=== PATIENT | female | born 1955 | race Caucasian/White ===

== ENCOUNTER 2017-04-27 14:09 | Emergency (ER) | payer OTHER, SELFPAY ==
[2017-04-27 14:44] LABS: Hemoglobin 14.4 g/dL (12.0-16.0); Mean Corpuscular HGB CONC 32.9 g/dL (32.0-36.0); Mean Corpuscular Hemoglobin 30.2 pg (27.0-31.0); Mean Corpuscular Volume 91.9 fl (81.0-99.0); Mean Platelet Volume 6.5 fL (7.4-10.4); Platelet Count 401 thou/uL (130-400); RBC Distribution Width 13.1 % (11.5-14.5); Red Blood Cell (RBC) Count 4.76 mill/uL (4.20-5.40); White Blood Cell (WBC) Count 16.1 thou/uL (4.8-10.8)
[2017-04-27 14:58] LABS: Band 4 % (5-11); Lymphocytes 13 % (21-51); MDiff Complete? YES; Monocytes 6 % (0-10); Neutrophil 66 % (42-75); PLT Morphology Comment Appears Increased; Polychromasia SLIGHT = 2-3 cells (100X) (0-2/hpf); Reactive Lymphocytes 10 % (0-10)
[2017-04-27 15:10] LABS: CKMB 2.9 ng/mL (0-6.6); Troponin I 0.019 ng/mL (< 0.028)
[2017-04-27 15:13] LABS: ALT (SGPT) 47 U/L (8-55); AST (SGOT) 30 U/L (5-34); Alkaline Phosphatase 91 U/L (40-150); Anion Gap 12 mmol/L (10-20); BUN (Urea Nitrogen) 15 mg/dL (9.8-20.1); Bilirubin, Total 0.2 mg/dL (0.2-1.2); CK (CPK) 124 U/L (29-168); Calc. Creatinine Clearance 0 mL/min (70-130); Calcium 11.1 mg/dL (7.8-10.44); Carbon Dioxide 29 mmol/L (23-31); Chloride 100 mmol/L (98-107); Estimated GFR-MDRD 47; Globulin 3.2 g/dL (2.4-3.5); Glucose 115 mg/dL (80-115); Lipase 67 U/L (8-78); Potassium 4.7 mmol/L (3.5-5.1); Protein, Total 7.2 g/dL (6.0-8.3); Sodium 136 mmol/L (136-145)
--- NOTE | 2017-04-27 15:56 | RAD ---
PORTABLE CHEST 1 VIEW: DATE: 04/27/17. TIME: 3:37 p.m. HISTORY: Chest pain. FINDINGS: Comparison is made to the exam of 04/10/16. The heart size is normal. The lungs are expanded without focal areas of consolidation, pneumothorax, or pleural effusions. IMPRESSION: No radiographic evidence of acute cardiopulmonary process. POS: [facility]
[2017-04-27] MEDS ORDERED: Albuterol Sulfate 2.5 mg/3 ml Neb ONE (16:26)
[2017-04-27] MEDS ORDERED: methylPREDNISolone Sod Succ/PF 125 MG/2 ML VIAL ONE (17:10)
[2017-04-27] MEDS ORDERED: Water For Inject, Bacteriostat 30 ML ONE (17:11)
== END 2017-04-27 17:25 | disposition home or self-care (01) ==
LOC: ERS 14:09
DX: J44.1 Chronic obstructive pulmonary disease with (acute) exacerbation (principal); E78.5 Hyperlipidemia, unspecified; I10 Essential (primary) hypertension; M19.90 Unspecified osteoarthritis, unspecified site; J44.9 Chronic obstructive pulmonary disease, unspecified; F41.9 Anxiety disorder, unspecified; F31.9 Bipolar disorder, unspecified; F17.210 Nicotine dependence, cigarettes, uncomplicated
CPT/HCPCS: 36415; 71010; 80053; 82550; 82553; 83605; 83690; 84484; 85025; 87040; 93005; 94640; 96374; J2930; J7611; J7620

== ENCOUNTER 2017-07-02 10:37 | Emergency (ER) | payer SELFPAY ==
[2017-07-02] MEDS ORDERED: ISOVUE-370 76%-LOCM 1 ML ONE (11:11)
[2017-07-02] MEDS ORDERED: Acetaminophen 325 MG TAB ONE (11:34)
[2017-07-02] MEDS ORDERED: Adacel (T-DAP) 0.5 ML VIAL ONE (11:34)
[2017-07-02 11:41] LABS: #Basophils 0.1 thou/uL (0.0-0.2); #Eosinphils 0.2 thou/uL (0.0-0.7); #Lymphocytes 2.1 thou/uL (1.20-3.40); #Monocytes 0.9 thou/uL (0.11-0.59); %Eosinophils 2.4 % (0.0-10.0); %Lymphocytes 28.8 % (21.0-51.0); %Monocytes 11.8 % (0.0-10.0); %Neutrophils 56.1 % (42.0-75.0); Hemoglobin 13.9 g/dL (12.0-16.0); Mean Corpuscular Hemoglobin 31.3 pg (27.0-31.0); Mean Corpuscular Volume 91.9 fl (81.0-99.0); Mean Platelet Volume 6.8 fL (7.4-10.4); Platelet Count 279 thou/uL (130-400); Red Blood Cell (RBC) Count 4.45 mill/uL (4.20-5.40); White Blood Cell (WBC) Count 7.2 thou/uL (4.8-10.8)
[2017-07-02 11:54] LABS: INR-International Normal Ratio 0.9; Prothrombin Time 12.4 SEC (12.0-14.7)
[2017-07-02 11:58] LABS: Bilirubin Negative (Negative); Blood, Urine Small (Negative); Clarity CLEAR (Clear); Glucose, Urine (Dipstick) Negative (Negative); Leukocyte Trace (Negative); Nitrite Negative (Negative); Protein, Urine (Dipstick) Negative (Neg-Trace); Specific Gravity, Urine 1.007 (1.002-1.036); Urobilinogen 0.2 mg/dL (0.2-1.0); pH, Urine 6.5 (5.0-9.0)
[2017-07-02 12:00] LABS: ALT (SGPT) 21 U/L (8-55); AST (SGOT) 29 U/L (5-34); Albumin 3.9 g/dL (3.4-4.8); Alkaline Phosphatase 68 U/L (40-150); Anion Gap 10 mmol/L (10-20); BUN (Urea Nitrogen) 12 mg/dL (9.8-20.1); Bilirubin, Total 0.3 mg/dL (0.2-1.2); Calc. Creatinine Clearance 0 mL/min (70-130); Calcium 9.4 mg/dL (7.8-10.44); Carbon Dioxide 29 mmol/L (23-31); Estimated GFR-MDRD 48; Globulin 2.8 g/dL (2.4-3.5); Glucose 85 mg/dL (80-115); Lipase 36 U/L (8-78); Potassium 4.5 mmol/L (3.5-5.1); Protein, Total 6.7 g/dL (6.0-8.3)
[2017-07-02 12:03] LABS: Bacteria/HPF None Seen HPF (None Seen); Hyaline Casts/LPF 0-3 HYALINE CAST LPF (0-3 Hyaline); Pathc Cast-AUWi Flag 0.13 (0-2.49); Squamous Epithelial 0-3 HPF (0-3); WBC/HPF 0-3 HPF (0-3)
[2017-07-02 12:09] LABS: Chloride 101 mmol/L (98-107); Sodium 135 mmol/L (136-145)
--- NOTE | 2017-07-02 12:38 | CT ---
CT ABDOMEN AND PELVIS WITH IV CONTRAST: HISTORY: Abdominal pain, dark stools. FINDINGS: The lung bases are clear. No free, free fluid, or lymphadenopathy is seen in the abdomen or pelvis. No calcified gallstones are noted. The liver, spleen, pancreas, adrenal glands, and kidneys are nor mal. The small bowel loops are not abnormally dilated. A normal-appearing appendix is present. A u terus is present. There are vascular calcifications without evidence of aneurysmal dilatation of the abdominal aorta. There are degenerative changes in the spine. IMPRESSION: No evidence of acute process. POS: [facility]
== END 2017-07-02 12:58 | disposition home or self-care (01) ==
LOC: ERS 10:37
DX: K92.2 Gastrointestinal hemorrhage, unspecified (principal); R31.9 Hematuria, unspecified; E78.5 Hyperlipidemia, unspecified; I10 Essential (primary) hypertension; M19.90 Unspecified osteoarthritis, unspecified site; J44.9 Chronic obstructive pulmonary disease, unspecified; G89.29 Other chronic pain; F31.9 Bipolar disorder, unspecified; F41.9 Anxiety disorder, unspecified; F17.210 Nicotine dependence, cigarettes, uncomplicated
CPT/HCPCS: 36415; 74177; 80053; 81003; 81015; 82274; 83605; 83690; 85025; 85610; 86850; 86900; 86901; 90471; 90715; 96360

== ENCOUNTER 2017-07-16 17:56 | Emergency (ER) | payer SELFPAY ==
[2017-07-16] MEDS ORDERED: HYDROcodone/Acetaminophen 10/325 mg Tablet ONE (19:59)
[2017-07-16] MEDS ORDERED: predniSONE 20 MG TAB ONE (20:00)
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
== END 2017-07-16 20:47 | disposition home or self-care (01) ==
LOC: ERS 17:56
DX: S29.012A Strain of muscle and tendon of back wall of thorax, initial encounter (principal); E78.5 Hyperlipidemia, unspecified; I10 Essential (primary) hypertension; J44.9 Chronic obstructive pulmonary disease, unspecified; F41.9 Anxiety disorder, unspecified; F31.9 Bipolar disorder, unspecified; F17.210 Nicotine dependence, cigarettes, uncomplicated; V43.62XA Car passenger injured in collision with other type car in traffic accident, initial encounter
CPT/HCPCS: 71045; 94640; 99406; J7506; J7620

== ENCOUNTER 2017-09-22 19:47 | Inpatient (IN) | payer OTHER, SELFPAY ==
[2017-09-22 20:22] LABS: #Lymphocytes 3.3 thou/uL (1.20-3.40); #Monocytes 1.7 thou/uL (0.11-0.59); #Neutrophils 11.5 thou/uL (1.40-6.50); %Basophils 0.2 % (0.0-1.0); %Eosinophils 0.3 % (0.0-10.0); %Neutrophils 69.5 % (42.0-75.0); Hemoglobin 13.7 g/dL (12.0-16.0); Mean Corpuscular HGB CONC 34.4 g/dL (32.0-36.0); Mean Corpuscular Hemoglobin 31.3 pg (27.0-31.0); Mean Corpuscular Volume 90.9 fl (81.0-99.0); Mean Platelet Volume 6.7 fL (7.4-10.4); Platelet Count 207 thou/uL (130-400); RBC Distribution Width 12.6 % (11.5-14.5); Red Blood Cell (RBC) Count 4.39 mill/uL (4.20-5.40); White Blood Cell (WBC) Count 16.5 thou/uL (4.8-10.8)
[2017-09-22 20:42] LABS: ALT (SGPT) 22 U/L (8-55); AST (SGOT) 24 U/L (5-34); Albumin 3.8 g/dL (3.4-4.8); Alkaline Phosphatase 91 U/L (40-150); Anion Gap 12 mmol/L (10-20); BUN (Urea Nitrogen) 8 mg/dL (9.8-20.1); Bilirubin, Total 0.4 mg/dL (0.2-1.2); CK (CPK) 227 U/L (29-168); Calc. Creatinine Clearance 0 mL/min (70-130); Calcium 8.7 mg/dL (7.8-10.44); Carbon Dioxide 31 mmol/L (23-31); Chloride 93 mmol/L (98-107); Estimated GFR-MDRD 57; Globulin 2.7 g/dL (2.4-3.5); Glucose 151 mg/dL (80-115); Potassium 4.3 mmol/L (3.5-5.1); Protein, Total 6.5 g/dL (6.0-8.3); Sodium 132 mmol/L (136-145)
[2017-09-22 20:45] LABS: CKMB 1.2 ng/mL (0-6.6); Troponin I Less than 0.010 ng/mL (< 0.028)
--- NOTE | 2017-09-22 21:09 | RAD ---
ONE VIEW CHEST: HISTORY: Weakness. Cough. COMPARISON: 07/16/2017 FINDINGS: Normal cardiac silhouette. Pulmonary vessels and hilum are normal. Costophrenic angles are clear. Bibasilar pleural effusion with superimposed parenchymal changes, right greater than left. Adequate aeration of the upper lungs. No pneumothorax. IMPRESSION: Bibasilar pleural and parenchymal changes. Continued surveillance to ensure resolution. POS: [facility]
[2017-09-22] MEDS ORDERED: Azithromycin 500 MG VIAL ONE (22:23)
[2017-09-22] MEDS ORDERED: cefTRIAXone\\ROCEPHIN 2 GM VIAL ONE (22:23)
[2017-09-22] MEDS ORDERED: Acetaminophen 325 MG TAB PO PRN (23:47)
[2017-09-22] MEDS ORDERED: Ondansetron ODT 4 MG TAB SL PRN (23:47)
[2017-09-22] MEDS ORDERED: Ondansetron HCl/PF 4 MG/2 ML Vial IVP PRN (23:47)
[2017-09-22 23:52] LABS: pH, Arterial 7.24 (7.35-7.45)
[2017-09-22 23:53] LABS: Actual Bicarbonate (HCO3a) 27.4 mEq/L (22-26); Base Excess (BEa) 1.2 mEq/L (0 (+/-) 2.5); Hematocrit-ABG 41.6 % (36.0-47.0); Hemoglobin (Hb) 12.3 g/dL (12.0-16.0); O2 Tension (PaO2) 65.6 mmHg (80.0-100.0)
[2017-09-22 23:54] LABS: Troponin I Less than 0.010 ng/mL (< 0.028)
[2017-09-22 23:54] LABS: Calcium, Ionized 1.1 mmol/L (1.12-1.30); Puncture Site RRA
[2017-09-23 02:27] VITALS: BMI 33.3
[2017-09-23 03:01] LABS: Troponin I Less than 0.010 ng/mL (< 0.028)
[2017-09-23] MEDS ORDERED: Mag-Al 1200 mg/1200 mg/30 ML UDCUP PO PRN (03:32)
[2017-09-23] MEDS ORDERED: Dextrose 5% in Water 1,000 ML IV PRN (03:32)
[2017-09-23] MEDS ORDERED: Ondansetron HCl/PF 4 MG/2 ML Vial IVP PRN (03:32)
[2017-09-23] MEDS ORDERED: HumaLOG 300 UNITS/3 ML VIAL SC PRN ×2 (03:32)
[2017-09-23] MEDS ORDERED: Calcium Carbonate 500 MG ChewTAB PO PRN (03:32)
[2017-09-23] MEDS ORDERED: Guaifenesin DM 100-10/5 ML UDCUP PO PRN (03:32)
[2017-09-23] MEDS ORDERED: Dextrose 50% Abboject 50 ML SYRINGE SLOW IVP PRN (03:32)
[2017-09-23] MEDS ORDERED: Benzonatate 100 MG CAP PO SCH (03:45)
[2017-09-23] MEDS: Sodium Chloride 0.9% 1,000 ML IV SCH ×2 (04:10→15:52)
--- NOTE | 2017-09-23 05:57 | HP ---
REASON FOR ADMISSION: Acute respiratory failure with hypercapnia and hypoxia, acute on chronic obstructive pulmonary disease exacerbation. HISTORY OF PRESENTING ILLNESS: The patient initially came to ER with complaints of cough with expectoration of yellow sputum. The patient says that she also fell as she was lethargic at home. She couldn't get back on and finally was brought to the emergency room. Had a fever of 99.4 degrees in the ER. She was initially on BiPAP and later was placed on nonrebreather in the ER. She has returned back to BiPAP as her saturations dropped again and the patient became more lethargic with ABG revealing pH of 7.24, pCO2 of 65. No complaints of chest pain or palpitation. The patient falls asleep, but wakes up easily and is oriented. PAST MEDICAL AND SURGICAL HISTORY: History of hypertension, dyslipidemia, COPD , bipolar disorder, chronic back pain, tonsillectomy. PERSONAL HISTORY: Smokes half pack a day. Does not abuse alcohol or drugs. Lives with her . FAMILY HISTORY: Mother in her 60s from heart disease. Father in his 60s and was alcoholic. CURRENT MEDICATIONS: Celexa 60 mg daily, clonazepam 1 mg 3 times daily, lisinopril 10 mg daily, temazepam 30 mg p.o. at bedtime, albuterol inhaler q.6 hourly p.r.n., Geodon 40 mg twice daily. ALLERGIES: LATEX. REVIEW OF SYSTEMS: The following complete review of systems was negative, unless otherwise mentioned in the HPI or below: Constitutional: Weight loss or gain, ability to conduct usual activities. Skin: Rash, itching. Eyes: Double vision, pain. ENT/Mouth: Nose bleeding, neck stiffness, pain, tenderness. Cardiovascular: Palpitations, dyspnea on exertion, orthopnea. Respiratory: Shortness of breath, wheezing, cough, hemoptysis, fever or night sweats. Gastrointestinal: Poor appetite, abdominal pain, heartburn, nausea, vomiting, constipation, or diarrhea. Genitourinary: Urgency, frequency, dysuria, nocturia. Musculoskeletal: Pain, swelling. Neurologic/Psychiatric: Anxiety, depression. Allergy/Immunologic: Skin rash, bleeding tendency. PHYSICAL EXAMINATION: GENERAL: The patient is a 62-year-old female, who is currently on BiPAP. VITAL SIGNS: Blood pressure 110/66, pulse 94 per minute, respiratory rate 20 per minute, temperature 99.4 degrees Fahrenheit, saturating 95% on BiPAP. NECK: Supple, no elevated JVD. HEENT: Eyes: Extraocular muscles intact. Pupils reacting to light. Oral cavity mucous membranes are dry. No exudates or congestion. CARDIOVASCULAR SYSTEM: S1, S2 heard. Regular rhythm. RESPIRATORY SYSTEM: Air entry 1+ bilateral. Scattered wheezes plus bilateral. ABDOMEN: Soft, bowel sounds heard. No tenderness, rigidity or guarding. EXTREMITIES: No peripheral edema or calf tenderness. VASCULAR SYSTEM: Peripheral pulses 1+ bilateral, no ischemic ulcerations or gangrene. CENTRAL NERVOUS SYSTEM: No gross focal deficits seen. The patient is lethargic , but oriented well. PSYCHIATRIC SYSTEM: The patient is lethargic, but no obvious hallucinations or delusions. LABORATORY AND X-RAY FINDINGS: Chest x-ray done shows bibasilar pleural and parenchymal changes. Sodium 132, chloride 93, serum bicarbonate 31, BUN 8, creatinine 0.9, glucose 151. Liver enzymes are within normal limits. CK level is 227, troponin I x2 is negative. Albumin is 3.8. Blood gas done shows a pH of 7.24, pCO2 of 65, pO2 of 65, saturating 92%. White count of 16, H&H 13 and 39, platelet count 207 with 69% neutrophils, MCV is 90. CLINICAL IMPRESSION AND PLAN: The patient will be admitted to IMCU for acute respiratory failure with hypercapnia and hypoxia, acute on chronic obstructive pulmonary disease exacerbation, possible pneumonia. The patient will be placed on Zithromax and ceftriaxone. We will continue her on BiPAP. Pulmonary consultation will be requested today. We will also place her on Solu-Medrol 40 mg IV q.6 hourly and gently hydrate her with normal saline at 80 mL per hour. We will continue her lisinopril and Geodon. She will be on clear liquid diet until she is on BiPAP. We will continue to closely monitor her in IMCU. Code status was discussed with patient. She is FULL CODE. Please note I have seen and examined patient on 09/22/2017. EVER
[2017-09-23] MEDS: Ziprasidone 20 MG CAP PO SCH ×2 (08:37→15:52)
[2017-09-23] MEDS: Enoxaparin Sodium 40 MG/0.4 ML SYRINGE SC SCH (08:38)
[2017-09-23] MEDS: Docusate 100 MG CAP PO SCH ×2 (08:38→21:26)
[2017-09-23] MEDS: Lisinopril 10 MG TAB PO SCH (08:38)
[2017-09-23] MEDS: Famotidine 20 MG TAB PO SCH ×2 (08:38→21:26)
[2017-09-23] MEDS ORDERED: Citalopram 20 MG TAB PO SCH ×3 (09:00→11:45)
[2017-09-23] MEDS ORDERED: Magnesium 2 GM/NS 0.9% 100 ML 2 GM in Premix Bag 1 BAG IVPB SCH (11:30)
--- NOTE | 2017-09-23 11:42 | PDOC.PN ---
- Subjective Encounter Start Date: 09/23/17 Encounter Start Time: 11:44 Patient seen and examined following admission for cute resp failure w hypercapnia and hypoxia. Improved w BiPAP. No other complaints. No acute events overnight. - Objective Resuscitation Status: Resuscitation Status FULL:Full Resuscitation Vital Signs & Weight: Vital Signs (12 hours) Temp Pulse Resp BP Pulse Ox 09/23/17 08:20 97.6 F 86 17 131/82 93 L 09/23/17 08:00 97.6 F 86 17 97 09/23/17 06:50 79 09/23/17 06:48 81 17 99 09/23/17 03:59 97.0 F L 74 16 92/61 100 09/23/17 02:39 73 09/23/17 01:00 97.8 F 75 18 100/60 98 Weight Weight 193 lb 14.4 oz I&O: 09/22/17 09/23/17 09/24/17 06:59 06:59 06:59 Intake Total 233 Balance 233 Result Diagrams: 09/22/17 20:10 09/22/17 20:10 Phys Exam - Physical Examination Constitutional: NAD HEENT: PERRLA, moist MMs Neck: no JVD, supple, full ROM Respiratory: no rales, no rhonchi reduced breath sounds b/l Cardiovascular: RRR, no significant murmur, no rub Gastrointestinal: soft, non-tender, no distention, positive bowel sounds Musculoskeletal: no edema, pulses present Neurological: non-focal, moves all 4 limbs Psychiatric: normal affect, A&O x 3 Skin: no rash, normal turgor Dx/Plan (1) Acute hypercapnic respiratory failure Code(s): J96.02 - ACUTE RESPIRATORY FAILURE WITH HYPERCAPNIA Status: Acute Comment: Improved w biPAP. COPD exacerbation vs PNA. (2) COPD exacerbation Code(s): J44.1 - CHRONIC OBSTRUCTIVE PULMONARY DISEASE W (ACUTE) EXACERBATION Status: Acute (3) Bipolar disorder Code(s): F31.9 - BIPOLAR DISORDER, UNSPECIFIED Status: Chronic Qualifiers: Active/Remission status: in remission of unspecified degree Qualified Code( s): F31.70 - Bipolar disorder, currently in remission, most recent episode unspecified (4) Chronic pain syndrome Code(s): G89.4 - CHRONIC PAIN SYNDROME Status: Chronic (5) Dyslipidemia Code(s): E78.5 - HYPERLIPIDEMIA, UNSPECIFIED Status: Chronic (6) HTN (hypertension) Code(s): I10 - ESSENTIAL (PRIMARY) HYPERTENSION Status: Chronic Qualifiers: Hypertension type: essential hypertension Qualified Code(s): I10 - Essential (primary) hypertension (7) Acute retention of urine Code(s): R33.8 - OTHER RETENTION OF URINE Status: Acute Comment: Uncelar etiology. Had > 1000cc on bladder scan. Castellanos placed. ? medication induced. - Plan cont current plan of care, continue antibiotics, respiratory therapy, DVT proph w/lovenox Continue NPPV Continue antibiotics, steroids, nebulizer therapy f/u cultures. Review of Systems - Review of Systems Respiratory: Cough, Shortness of Breath, Wheezing - Medications/Allergies Allergies/Adverse Reactions: Allergies Allergy/AdvReac Type Severity Reaction Status Date / Time latex Allergy Intermediate Rash Verified 09/23/17 02:25 No Known Drug Allergies Allergy Verified 09/23/17 02:25 Medications: Current Medications Acetaminophen (Tylenol) 650 mg PO Q4H PRN PRN Reason: Headache/Fever or Pain Al Hydroxide/Mg Hydroxide (Maalox) 30 ml PO Q6H PRN PRN Reason: Heartburn or Indigestion Albuterol/Ipratropium (Duoneb) 3 ml NEB [id number] [facility] Last Admin: 09/23/17 06:48 Dose: 3 ml Benzonatate (Tessalon) 100 mg PO TIDPRN [facility] Calcium Carbonate (Tums) 1,000 mg PO Q4H PRN PRN Reason: Heartburn or Indigestion Citalopram Hydrobromide (Celexa) 40 mg PO NOW [facility] Stop: 09/23/17 14:00 Citalopram Hydrobromide (Celexa) 40 mg PO DAILY [facility] Clonazepam (Klonopin) 1 mg PO TID [facility] Clonazepam (Klonopin) 1 mg PO ONE [facility] Stop: 09/23/17 13:00 Dextrose/Water (Dextrose 50%) 25 gm SLOW IVP PRN PRN PRN Reason: Hypoglycemia Docusate Sodium (Colace) 100 mg PO BID [facility] Last Admin: 09/23/17 08:38 Dose: 100 mg Enoxaparin Sodium (Lovenox) 40 mg SC 0900 [facility] Last Admin: 05/29/18 08:38 Dose: 40 mg Famotidine (Pepcid) 20 mg PO BID [facility] Last Admin: 09/23/17 08:38 Dose: 20 mg Glucagon (Glucagon) 1 mg IM PRN PRN PRN Reason: Hypoglycemia Guaifenesin/Dextromethorphan (Robitussin Dm) 15 ml PO Q4H PRN PRN Reason: Cough Azithromycin 500 mg/ Sodium (Chloride) 250 mls @ 250 mls/hr IVPB 2200 [facility] Ceftriaxone Sodium 1 gm/ (Sodium Chloride) 100 mls @ 200 mls/hr IVPB 2100 [facility] Dextrose/Water (D5w) 1,000 mls @ 0 mls/hr IV .Q0M PRN; As Directed PRN Reason: Hypoglycemia Sodium Chloride (Normal Saline 0.9%) 1,000 mls @ 80 mls/hr IV .[id number] [facility] Last Admin: 09/23/17 04:10 Dose: 1,000 mls Magnesium Sulfate 2 gm/ Device 100 mls @ 100 mls/hr IVPB ONE [facility] Stop: 09/23/17 14:00 Insulin Human Lispro (Humalog) 0 units SC .MILD SLIDING SCALE PRN PRN Reason: Mild Correctional Scale Insulin Human Lispro (Humalog) 0 units SC .BEDTIME SLIDING SC PRN PRN Reason: Bedtime Correctional Scale Lisinopril (Zestril) 10 mg PO DAILY [facility] Last Admin: 09/23/17 08:38 Dose: 10 mg Methylprednisolone Sodium Succinate (Solu-Medrol) 40 mg IVP Q6HR [facility] Last Admin: 09/23/17 05:55 Dose: 40 mg Mometasone Furoate/Formoterol Fumar (Dulera 200 Mcg/5 Mcg Inhaler) 2 puff INH BID-RT [facility] Ondansetron HCl (Zofran) 4 mg IVP Q6H PRN PRN Reason: Nausea/Vomiting Sodium Chloride (Flush - Normal Saline) 10 ml IVF Q12HR [facility] Sodium Chloride (Flush - Normal Saline) 10 ml IVF PRN PRN PRN Reason: Saline Flush Ziprasidone (Geodon) 40 mg PO BID-WM [facility] Last Admin: 09/23/17 08:37 Dose: 40 mg
[2017-09-23] MEDS ORDERED: clonazePAM 0.5 MG TAB PO SCH (11:45)
--- NOTE | 2017-09-23 11:53 | CON ---
DATE OF CONSULTATION: 09/23/2017 HISTORY OF PRESENT ILLNESS: This is a 62-year-old female from [place], [place], who presented with in creasing shortness of breath, cough, some yellow sputum. She has been smoking half pack a day up to a pack a day for most of her life. She has quit smoking 2 days ago. Per family she has been very an xious and nervous, is apparently dying of cancer. This morning she is still having difficulty breathing without any chest pain, chills or sweats. On most days, she says she can barely walk half a block without getting markedly short of breath. PAST MEDICAL HISTORY: Hyperlipidemia, high cholesterol, hypertension, arthritis, chronic pain, scoli osis, COPD, anxiety, depression. Bipolar disorder. PAST SURGICAL HISTORY: Tonsillectomy. ALCOHOL/TOBACCO: Denies any alcohol. As noted tobacco as noted. ALLERGIES: None. SOCIAL HISTORY: She was a manager of school at one time. REVIEW OF SYSTEMS: Ten point negative. PHYSICAL EXAMINATION: VITAL SIGNS: On BiPAP her sats were 90-93 on nasal O2 2 liters at 92, pulse 97, blood pressure 131/8 2. CHEST: Chest revealed decreased breath sounds, bilateral wheezing. CARDIAC: Normal S1, S2. No gallops. ABDOMEN: Soft, no masses. LABORATORY AND X-RAY FINDINGS: PO2 65, PCO2 65, pH 7.24 on 2 liters nasal O2. Electrolytes are norm al. Sodium 132. Her renal functions are normal. X-ray shows questionable bibasilar infiltrate. IMPRESSION: 1. Chronic obstructive pulmonary disease exacerbation. 2. Pneumonia. 3. Major anxiety. 4. Bipolar disorder. 5. Respiratory failure, probably hypoventilation, sleep apnea. PLAN: She is on Zithromax and ceftriaxone along with IV steroids which I will continue. I have adde d Dulera and some magnesium. I will follow. Consultation note 70 minutes of which 50% spent in direct patient care.
[2017-09-23] MEDS: clonazePAM 0.5 MG TAB PO SCH ×2 (15:51→21:31)
[2017-09-23] MEDS ORDERED: Nicotine 14 MG PATCH TOP SCH (16:00)
[2017-09-23] MEDS: Mometasone/Formoterol 120 PUFF INHALER INH SCH (19:19)
[2017-09-23] MEDS ORDERED: cefTRIAXone\\ROCEPHIN 1 GM in Sodium Chloride 0.9% 100 ML IVPB SCH (21:00)
[2017-09-23] MEDS: Acetaminophen 325 MG TAB PO PRN (21:25)
[2017-09-23] MEDS ORDERED: Azithromycin 500 MG in Sodium Chloride 0.9% 250 ML 250 ML IVPB SCH (22:00)
[2017-09-24 04:39] LABS: Anion Gap 10 mmol/L (10-20); BUN (Urea Nitrogen) 8 mg/dL (9.8-20.1); Calc. Creatinine Clearance 108 mL/min (70-130); Calcium 8.7 mg/dL (7.8-10.44); Carbon Dioxide 27 mmol/L (23-31); Chloride 102 mmol/L (98-107); Estimated GFR-MDRD 78; Glucose 145 mg/dL (80-115); Potassium 4.7 mmol/L (3.5-5.1); Sodium 134 mmol/L (136-145)
[2017-09-24 05:14] LABS: Band 2 % (5-11); Hemoglobin 11.4 g/dL (12.0-16.0); Lymphocytes 4 % (21-51); MDiff Complete? YES; Mean Corpuscular Volume 91.4 fl (81.0-99.0); Mean Platelet Volume 6.8 fL (7.4-10.4); Monocytes 5 % (0-10); Neutrophil 89 % (42-75); Platelet Count 176 thou/uL (130-400); RBC Distribution Width 12.8 % (11.5-14.5); Red Blood Cell (RBC) Count 3.68 mill/uL (4.20-5.40); White Blood Cell (WBC) Count 16.4 thou/uL (4.8-10.8)
[2017-09-24] MEDS: Ziprasidone 20 MG CAP PO SCH ×2 (07:15→18:18)
[2017-09-24] MEDS ORDERED: Diazepam 5 MG TAB PO SCH (07:30)
[2017-09-24] MEDS: Mometasone/Formoterol 120 PUFF INHALER INH SCH ×2 (07:36→19:17)
--- NOTE | 2017-09-24 08:43 | PRG ---
DATE OF SERVICE: 09/24/2017 This morning she is awake, alert, responsive. She wants to go home. PHYSICAL EXAMINATION: VITAL SIGNS: Sats 90% room air, respiratory 21, temperature 97, blood pressure 130/76. CHEST: Chest reveals decreased breath sounds with minimal wheezing. CARDIAC: Normal S1, S2. ABDOMEN: Soft, no masses. LABORATORY DATA: White count 16,000, H&H 11 and 33, platelet count normal. IMPRESSION: 1. Chronic obstructive pulmonary disease exacerbation. 2. Bronchitis. 3. Major anxiety. 4. Bipolar. PLAN: Switch her to oral medication. She can be transferred out of the [facility]. Hopefully, she will d ischarge home in the next 24-48 hours.
[2017-09-24] MEDS: clonazePAM 0.5 MG TAB PO SCH ×3 (09:43→21:25)
[2017-09-24] MEDS: Enoxaparin Sodium 40 MG/0.4 ML SYRINGE SC SCH (09:43)
[2017-09-24] MEDS: Docusate 100 MG CAP PO SCH ×2 (09:44→21:26)
[2017-09-24] MEDS: Aspirin 325 mg Enteric Coated Tablet PO SCH (09:44)
[2017-09-24] MEDS: Nicotine 14 MG PATCH TOP SCH (09:44)
[2017-09-24] MEDS: Famotidine 20 MG TAB PO SCH ×2 (09:44→21:27)
[2017-09-24] MEDS: Citalopram 20 MG TAB PO SCH (09:44)
[2017-09-24] MEDS: Lisinopril 10 MG TAB PO SCH (09:44)
[2017-09-24] MEDS: Doxycycline 100 MG CAP PO SCH ×2 (09:44→21:26)
[2017-09-24] MEDS: Gabapentin 100 MG CAP PO SCH ×3 (09:44→21:27)
[2017-09-24] MEDS ORDERED: Non-Formulary Item 1 EACH (Hydroxyzine Hcl [Hydroxyzine Hcl] 50 MG) PO PRN (10:41)
--- NOTE | 2017-09-24 10:43 | PDOC.PN ---
- Subjective Encounter Start Date: 09/24/17 Encounter Start Time: 10:45 Patient seen following admission for Acute hypercapnic respiratory failure requiring BiPAP. She has been weaned off and is saturating well on room air. No acute events overnight. - Objective Resuscitation Status: Resuscitation Status FULL:Full Resuscitation MAR Reviewed: Yes Vital Signs & Weight: Vital Signs (12 hours) Temp Pulse Resp BP Pulse Ox 09/24/17 08:00 97.7 F 87 21 H 98 09/24/17 03:32 97.7 F 87 21 H 137/76 97 09/23/17 23:51 97.6 F 83 20 112/60 100 09/23/17 23:31 82 16 97 Weight Weight 191 lb 3.2 oz I&O: 09/23/17 09/24/17 09/25/17 06:59 06:59 06:59 Intake Total 233 4410 Output Total 3900 Balance 233 510 Result Diagrams: 09/24/17 03:56 09/24/17 03:56 Additional Labs: Accuchecks 09/24/17 09/23/17 09/23/17 05:53 20:18 16:19 POC Glucose 140 H 123 H 165 H 09/23/17 09/23/17 11:43 05:59 POC Glucose 182 H 158 H Phys Exam - Physical Examination Constitutional: NAD HEENT: PERRLA, moist MMs, sclera anicteric, oral pharynx no lesions Neck: supple, full ROM Respiratory: no rales, no rhonchi mild wheezes w reduced breath sounds b/l Cardiovascular: RRR, no significant murmur, no rub Gastrointestinal: soft, non-tender, no distention, positive bowel sounds Musculoskeletal: no edema, pulses present Neurological: non-focal, moves all 4 limbs Psychiatric: normal affect, A&O x 3 Skin: no rash, normal turgor Dx/Plan (1) COPD exacerbation Code(s): J44.1 - CHRONIC OBSTRUCTIVE PULMONARY DISEASE W (ACUTE) EXACERBATION Status: Acute Comment: Improved. (2) Bipolar disorder Code(s): F31.9 - BIPOLAR DISORDER, UNSPECIFIED Status: Chronic Qualifiers: Active/Remission status: in remission of unspecified degree Qualified Code( s): F31.70 - Bipolar disorder, currently in remission, most recent episode unspecified (3) Chronic pain syndrome Code(s): G89.4 - CHRONIC PAIN SYNDROME Status: Chronic (4) Dyslipidemia Code(s): E78.5 - HYPERLIPIDEMIA, UNSPECIFIED Status: Chronic (5) HTN (hypertension) Code(s): I10 - ESSENTIAL (PRIMARY) HYPERTENSION Status: Chronic Qualifiers: Hypertension type: essential hypertension Qualified Code(s): I10 - Essential (primary) hypertension (6) Acute hypercapnic respiratory failure Code(s): J96.02 - ACUTE RESPIRATORY FAILURE WITH HYPERCAPNIA Status: Resolved (7) Acute retention of urine Code(s): R33.8 - OTHER RETENTION OF URINE Status: Resolved - Plan cont current plan of care, continue antibiotics, out of bed/ambulate, DVT proph w/lovenox Continue bronchodilator treatments and steroids. Patient started on PO Doxycycline. Transfer to medical floor. Likely discharge in 24 hours. Review of Systems - Medications/Allergies Allergies/Adverse Reactions: Allergies Allergy/AdvReac Type Severity Reaction Status Date / Time latex Allergy Intermediate Rash Verified 09/23/17 02:25 No Known Drug Allergies Allergy Verified 09/23/17 02:25 Medications: Current Medications Acetaminophen (Tylenol) 650 mg PO Q4H PRN PRN Reason: Headache/Fever or Pain Last Admin: 09/23/17 21:25 Dose: 650 mg Al Hydroxide/Mg Hydroxide (Maalox) 30 ml PO Q6H PRN PRN Reason: Heartburn or Indigestion Albuterol/Ipratropium (Duoneb) 3 ml NEB [id number] COUNT INCLUDES [facility] Last Admin: 09/24/17 07:48 Dose: Not Given Aspirin (Ecotrin) 325 mg PO DAILY COUNT INCLUDES [facility] Last Admin: 09/24/17 09:44 Dose: 325 mg Benzonatate (Tessalon) 100 mg PO TIDPRN COUNT INCLUDES THE [facility] Calcium Carbonate (Tums) 1,000 mg PO Q4H PRN PRN Reason: Heartburn or Indigestion Citalopram Hydrobromide (Celexa) 40 mg PO DAILY [facility]CLUD[facility] Last Admin: 09/24/17 09:44 Dose: 40 mg Clonazepam (Klonopin) 1 mg PO TID [facility]CLUD[facility] Last Admin: 09/24/17 09:43 Dose: 1 mg Dextrose/Water (Dextrose 50%) 25 gm SLOW IVP PRN PRN PRN Reason: Hypoglycemia Docusate Sodium (Colace) 100 mg PO BID [facility] Last Admin: 09/24/17 09:44 Dose: 100 mg Doxycycline Hyclate (Vibramycin) 100 mg PO BID [facility] Last Admin: 09/24/17 09:44 Dose: 100 mg Enoxaparin Sodium (Lovenox) 40 mg SC 0900 [facility]CLUD[facility] Last Admin: 09/24/17 09:43 Dose: 40 mg Famotidine (Pepcid) 20 mg PO BID [facility] Last Admin: 09/24/17 09:44 Dose: 20 mg Gabapentin (Neurontin) 100 mg PO TID [facility] Last Admin: 09/24/17 09:44 Dose: 100 mg Glucagon (Glucagon) 1 mg IM PRN PRN PRN Reason: Hypoglycemia Guaifenesin/Dextromethorphan (Robitussin Dm) 15 ml PO Q4H PRN PRN Reason: Cough Dextrose/Water (D5w) 1,000 mls @ 0 mls/hr IV .Q0M PRN; As Directed PRN Reason: Hypoglycemia Sodium Chloride (Normal Saline 0.9%) 1,000 mls @ 80 mls/hr IV .[id number] COUNT INCLUDES THE [facility] Last Admin: 09/23/17 15:52 Dose: 1,000 mls Insulin Human Lispro (Humalog) 0 units SC .MILD SLIDING SCALE PRN PRN Reason: Mild Correctional Scale Insulin Human Lispro (Humalog) 0 units SC .BEDTIME SLIDING SC PRN PRN Reason: Bedtime Correctional Scale Lisinopril (Zestril) 10 mg PO DAILY [facility]CLUD[facility] Last Admin: 09/24/17 09:44 Dose: 10 mg Mometasone Furoate/Formoterol Fumar (Dulera 200 Mcg/5 Mcg Inhaler) 2 puff INH BID-RT COUNT [facility]CLUDES [facility] Last Admin: 09/24/17 07:36 Dose: 2 puff Nicotine (Nicoderm Patch) 14 mg TOP DAILY COUNT INCLUDES [facility] Last Admin: 09/24/17 09:44 Dose: 14 mg Ondansetron HCl (Zofran) 4 mg IVP Q6H PRN PRN Reason: Nausea/Vomiting Prednisone (Prednisone) 40 mg PO QAM-WM COUNT INCLUDES THE [facility] Sodium Chloride (Flush - Normal Saline) 10 ml IVF Q12HR COUNT INCLUDES [facility] Last Admin: 09/24/17 09:45 Dose: 10 ml Sodium Chloride (Flush - Normal Saline) 10 ml IVF PRN PRN PRN Reason: Saline Flush Ziprasidone (Geodon) 40 mg PO BID-[facility] Last Admin: 09/24/17 07:15 Dose: 40 mg
[2017-09-24] MEDS ORDERED: hydrOXYzine 25 MG TAB PO PRN (10:44)
[2017-09-24] MEDS: Sodium Chloride 0.9% 1,000 ML IV SCH (13:05)
[2017-09-24] MEDS: Acetaminophen 325 MG TAB PO PRN (15:58)
[2017-09-24 16:54] VITALS: TEMP 98.4
[2017-09-24] MEDS: Diazepam 5 MG TAB PO SCH (21:26)
[2017-09-25] MEDS: Mometasone/Formoterol 120 PUFF INHALER INH SCH (07:00)
[2017-09-25] MEDS ORDERED: predniSONE 20 MG TAB PO SCH (08:00)
[2017-09-25 08:08] VITALS: BP 147/88
[2017-09-25] MEDS: Doxycycline 100 MG CAP PO SCH (09:27)
[2017-09-25] MEDS: Ziprasidone 20 MG CAP PO SCH (09:27)
[2017-09-25] MEDS: Citalopram 20 MG TAB PO SCH (09:27)
[2017-09-25] MEDS: Gabapentin 100 MG CAP PO SCH (09:27)
[2017-09-25] MEDS: Docusate 100 MG CAP PO SCH (09:28)
[2017-09-25] MEDS: clonazePAM 0.5 MG TAB PO SCH (09:28)
[2017-09-25] MEDS: Nicotine 14 MG PATCH TOP SCH (09:28)
[2017-09-25] MEDS: Aspirin 325 mg Enteric Coated Tablet PO SCH (09:28)
[2017-09-25] MEDS: Diazepam 5 MG TAB PO SCH (09:28)
[2017-09-25] MEDS: Lisinopril 10 MG TAB PO SCH (09:29)
[2017-09-25] MEDS: Enoxaparin Sodium 40 MG/0.4 ML SYRINGE SC SCH (09:41)
[2017-09-25] MEDS: Famotidine 20 MG TAB PO SCH (09:41)
--- NOTE | 2017-09-26 00:32 | DIS ---
DATE OF ADMISSION: 09/22/2017 DATE OF DISCHARGE: 09/25/2017 DISCHARGE DIAGNOSES: As the followin. Chronic obstructive pulmonary disease exacerbation. 2. Bipolar disorder. 3. Chronic pain syndrome. 4. Dyslipidemia. 5. Hypertension. HOSPITAL COURSE: The patient is a 62-year-old female who initially presented to the hospital with co mplaints of shortness of breath. She also was complaint of cough with yellow-sputum production. Kristi kitchen initially was at home, feeling very tired, and her finally brought her into the ER for f urther evaluation. Patient was initially placed on BiPAP and later on a nonrebreather and initially was transferred to the [facility] for closer monitoring. The patient denies any complaints of chest pain o r palpitation. Patient then was transitioned to the medical floor. Patient also was seen by Pulmono carole. Patient was put initially on broad spectrum antibiotics and then was changed to doxycycline an d neb treatments. Upon discharge, the patient states that she feels much better. Her shortness of b reath has resolved. She is able to ambulate without any issues. Patient states that she does have a nebulizer at home and also has tons of medications for her nebulizer. She will be discharged home w ith antibiotics and an inhaler which has been prescribed by senior inspector. DISCHARGE MEDICATIONS: As the following: The new ones are Tessalon Perles 100 mg t.i.d., doxycyclin e 100 mg b.i.d. for 5 days, Pepcid 20 mg b.i.d. until she is on her prednisone, prednisone 40 mg for 2 more days, which will be 5 days total, and mometasone and formoterol 2 puffs b.i.d., lisinopril 10 mg daily, temazepam 30 mg at bedtime, aspirin 325 daily, Celexa 80 mg daily, Geodon 40 mg daily, jone pentin 100 mg t.i.d., Valium 10 mg b.i.d., and hydrochlorothiazide 50 mg p.o. b.i.d. p.r.n. PHYSICAL EXAMINATION: VITAL SIGNS: 98.4 temperature, pulse of 81, respirations of 16, 95% on room air, blood pressure 129/ 77. GENERAL: She is awake, alert, and oriented x3, does not appear in distress. CARDIOVASCULAR: S1, S2 present. No murmurs, rubs, or gallops. LUNGS: Mild expiratory wheezing to bilateral lower bases, otherwise normal. ABDOMEN: Soft, nontender. Bowel sounds are present x2. EXTREMITIES: No edema. DISCHARGE INSTRUCTIONS: The patient will be discharged home. She will follow up with PCP and Pulmon ology next week.
== END 2017-09-25 12:53 | disposition home or self-care (01) | DRG 189 ==
LOC: ERS 19:47 → T4-B 22:43 → IMCU/EMU 09-23 01:20 → T4-A 09-24 11:09
PROVIDERS: ADMIT Internal Medicine; ATTEND Internal Medicine
DX: J96.02 Acute respiratory failure with hypercapnia (principal); J44.1 Chronic obstructive pulmonary disease with (acute) exacerbation; J96.01 Acute respiratory failure with hypoxia; F17.210 Nicotine dependence, cigarettes, uncomplicated; F41.9 Anxiety disorder, unspecified; F31.9 Bipolar disorder, unspecified; G89.29 Other chronic pain; E78.5 Hyperlipidemia, unspecified; I10 Essential (primary) hypertension; R33.8 Other retention of urine
CPT/HCPCS: 36415; 36416; 71045; 80048; 80053; 82550; 82553; 82805; 83605; 84484; 85025; 87040; 90471; 93005; 94640; 94660; 94760; 96361; 96365; A4216; J0456; J0696; J1650; J2405; J2920; J7050; J7506; J7620

== ENCOUNTER 2017-10-01 14:17 | Emergency (ER) | payer SELFPAY | END 2017-10-01 15:11 | disposition home or self-care (01) | LOC: ERS 14:17 | DX: S51.012D Laceration without foreign body of left elbow, subsequent encounter (principal); E78.5 Hyperlipidemia, unspecified; I10 Essential (primary) hypertension; J44.9 Chronic obstructive pulmonary disease, unspecified; F41.9 Anxiety disorder, unspecified; F31.9 Bipolar disorder, unspecified; F17.210 Nicotine dependence, cigarettes, uncomplicated | CPT/HCPCS: 99282 ==

== ENCOUNTER 2017-12-31 18:50 | Emergency (ER) | payer OTHER, SELFPAY ==
--- NOTE | 2017-12-31 22:21 | CT ---
NONCONTRAST CT HEAD: 12/31/17 HISTORY: Headache. COMPARISON: 04/03/16. FINDINGS: Low areas of diminished attenuation seen in the periventricular white matter which are nonspecific bu t likely reflective of mild chronic small vessel ischemic changes. There is no evidence of an acute c ortical infarction, hemorrhage, mass effect, or midline shift. Ventricular system is normal in size, shape, and position. Mucosal thickening is present in the sphenoid sinuses bilaterally. Mastoid air cells are clear. Mandy rial structures are intact. No other interval change. IMPRESSION: 1. No acute intracranial abnormalities demonstrated. 2. Sinus disease involving the sphenoid sinuses. POS: [facility]
[2017-12-31] MEDS ORDERED: Metoclopramide HCl 10 MG/2 ML VIAL ONE (22:34)
[2017-12-31] MEDS ORDERED: diphenhydrAMINE 50 MG/ML VIAL ONE (22:34)
[2017-12-31] MEDS ORDERED: Acetaminophen/Codeine 30-300mg Tablet ONE (23:32)
[2018-01-01 00:16] LABS: #Basophils 0.1 thou/uL (0.0-0.2); #Eosinphils 0.2 thou/uL (0.0-0.7); #Lymphocytes 2.5 thou/uL (1.20-3.40); #Monocytes 0.8 thou/uL (0.11-0.59); %Basophils 0.8 % (0.0-1.0); %Eosinophils 2.9 % (0.0-10.0); %Lymphocytes 33.1 % (21.0-51.0); %Monocytes 10.8 % (0.0-10.0); %Neutrophils 52.4 % (42.0-75.0); Hemoglobin 12.4 g/dL (12.0-16.0); Mean Corpuscular HGB CONC 34.3 g/dL (32.0-36.0); Mean Corpuscular Hemoglobin 30.7 pg (27.0-31.0); Mean Corpuscular Volume 89.5 fL (78.0-98.0); Mean Platelet Volume 7.6 fL (7.4-10.4); Platelet Count 238 thou/uL (130-400); RBC Distribution Width 14.4 % (11.5-14.5); Red Blood Cell (RBC) Count 4.02 mill/uL (4.20-5.40); White Blood Cell (WBC) Count 7.6 thou/uL (4.8-10.8)
[2018-01-01 00:39] LABS: ALT (SGPT) 12 U/L (8-55); AST (SGOT) 15 U/L (5-34); Albumin 3.3 g/dL (3.4-4.8); Alkaline Phosphatase 70 U/L (40-150); Anion Gap 10 mmol/L (10-20); BUN (Urea Nitrogen) 6 mg/dL (9.8-20.1); Bilirubin, Total 0.2 mg/dL (0.2-1.2); Calc. Creatinine Clearance 0 mL/min (70-130); Calcium 8.7 mg/dL (7.8-10.44); Carbon Dioxide 37 mmol/L (23-31); Chloride 95 mmol/L (98-107); Estimated GFR-MDRD 67; Globulin 2.4 g/dL (2.4-3.5); Glucose 107 mg/dL (80-115); Protein, Total 5.7 g/dL (6.0-8.3); Sodium 139 mmol/L (136-145)
[2018-01-01 00:42] LABS: Potassium 2.8 mmol/L (3.5-5.1)
[2018-01-01 01:14] LABS: Base Excess-Venous 13.1 mmol/L (0 (+/- 2.5)); Bicarbonate (HCO3v) 41.4 mmol/L (1.0-85.0); CO2 Tension (PvCO2) 68.4 mmHg (41.0-51.0); Calcium, Ionized 1.12 mmol/L (1.12-1.32); Hemoglobin - Calc 14.3 g/dL (12.0-18.0); O2 Tension (PvO2) 23.1 mmHg (35.0-45.0); Potassium 3.4 mmol/L (3.4-4.7); T. Carbon Dioxide 43.5 mmol/L (1.0-85.0); vO2 Saturation-calc 36.8 % (94-98)
--- NOTE | 2018-01-03 19:45 | EKG ---
Test Reason : HYPOKALEMIA Blood Pressure : / mmHG Vent. Rate : 061 BPM Atrial Rate : 061 BPM P-R Int : 190 ms QRS Dur : 082 ms QT Int : 478 ms P-R-T Axes : 034 057 067 degrees QTc Int : 481 ms Normal sinus rhythm Nonspecific T wave abnormality Prolonged QT U wave present Abnormal ECG Confirmed by DENZEL WREN M.D. ([id number]), deputy editor in chief IRLANDA LEUNG ([id number] on 01/03/2018 7:44:53 PM Referred By: HOLGER Confirmed By:DENZEL WREN M.D.
== END 2018-01-01 01:26 | disposition home or self-care (01) ==
LOC: ERS 18:50
DX: R51 Headache (principal); E87.6 Hypokalemia; E78.5 Hyperlipidemia, unspecified; I10 Essential (primary) hypertension; J44.9 Chronic obstructive pulmonary disease, unspecified; F41.9 Anxiety disorder, unspecified; F31.9 Bipolar disorder, unspecified; F17.210 Nicotine dependence, cigarettes, uncomplicated; Z71.6 Tobacco abuse counseling
CPT/HCPCS: 36415; 70450; 80053; 82330; 82435; 82803; 84132; 84295; 85014; 85025; 85652; 86140; 93005; 96365; 96375; 99406; J1200; J2765

== ENCOUNTER 2018-01-07 14:13 | Emergency (ER) | payer SELFPAY ==
[2018-01-07 14:40] LABS: #Basophils 0.1 thou/uL (0.0-0.2); #Eosinphils 0.1 thou/uL (0.0-0.7); #Lymphocytes 1.6 thou/uL (1.20-3.40); #Monocytes 0.6 thou/uL (0.11-0.59); #Neutrophils 7.9 thou/uL (1.40-6.50); %Basophils 0.9 % (0.0-1.0); %Eosinophils 0.9 % (0.0-10.0); %Lymphocytes 15.2 % (21.0-51.0); %Monocytes 6.2 % (0.0-10.0); %Neutrophils 76.9 % (42.0-75.0); Hemoglobin 14.2 g/dL (12.0-16.0); Mean Corpuscular HGB CONC 33.6 g/dL (32.0-36.0); Mean Corpuscular Hemoglobin 29.6 pg (27.0-31.0); Mean Corpuscular Volume 88.1 fL (78.0-98.0); Mean Platelet Volume 7.3 fL (7.4-10.4); Platelet Count 304 thou/uL (130-400); RBC Distribution Width 14.5 % (11.5-14.5); Red Blood Cell (RBC) Count 4.81 mill/uL (4.20-5.40); White Blood Cell (WBC) Count 10.3 thou/uL (4.8-10.8)
[2018-01-07 15:05] LABS: ALT (SGPT) 18 U/L (8-55); AST (SGOT) 19 U/L (5-34); Alkaline Phosphatase 83 U/L (40-150); Anion Gap 12 mmol/L (10-20); BUN (Urea Nitrogen) 5 mg/dL (9.8-20.1); Bilirubin, Total 0.2 mg/dL (0.2-1.2); Calc. Creatinine Clearance 0 mL/min (70-130); Calcium 9.4 mg/dL (7.8-10.44); Carbon Dioxide 29 mmol/L (23-31); Chloride 95 mmol/L (98-107); Estimated GFR-MDRD 62; Globulin 2.9 g/dL (2.4-3.5); Glucose 109 mg/dL (80-115); Potassium 3.6 mmol/L (3.5-5.1); Protein, Total 6.9 g/dL (6.0-8.3); Sodium 132 mmol/L (136-145)
[2018-01-07] MEDS ORDERED: Metoclopramide HCl 10 MG/2 ML VIAL ONE (15:07)
[2018-01-07] MEDS ORDERED: Ketorolac Tromethamine 30 MG/ML VIAL ONE (15:07)
[2018-01-07] MEDS ORDERED: diphenhydrAMINE 50 MG/ML VIAL ONE (15:07)
== END 2018-01-07 16:40 | disposition home or self-care (01) ==
LOC: ERS 14:13
DX: R51 Headache (principal); E78.5 Hyperlipidemia, unspecified; I10 Essential (primary) hypertension; J44.9 Chronic obstructive pulmonary disease, unspecified; F41.9 Anxiety disorder, unspecified; F31.9 Bipolar disorder, unspecified; F17.210 Nicotine dependence, cigarettes, uncomplicated; Z79.899 Other long term (current) drug therapy
CPT/HCPCS: 80053; 85025; 96365; 96375; J1200; J1885; J2765

== ENCOUNTER 2018-03-26 02:37 | Emergency (ER) | payer SELFPAY ==
[2018-03-26] MEDS ORDERED: HYDROcodone/Acetaminophen 5/325 mg Tablet ONE (03:18)
== END 2018-03-26 03:29 | disposition home or self-care (01) ==
LOC: ERS 02:37
DX: T21.13XA Burn of first degree of upper back, initial encounter (principal)
CPT/HCPCS: 99283

== ENCOUNTER 2018-04-08 19:00 | Emergency (ER) | payer SELFPAY ==
[2018-04-08] MEDS ORDERED: Diazepam 5 MG TAB ONE (19:46)
[2018-04-08] MEDS ORDERED: Ziprasidone 20 MG VIAL ONE (19:47)
[2018-04-08] MEDS ORDERED: Water For Inject, Bacteriostat 30 ML ONE (19:49)
== END 2018-04-08 20:50 | disposition home or self-care (01) ==
LOC: ERS 19:00
DX: R21 Rash and other nonspecific skin eruption (principal); E78.5 Hyperlipidemia, unspecified; I10 Essential (primary) hypertension; J44.9 Chronic obstructive pulmonary disease, unspecified; F17.210 Nicotine dependence, cigarettes, uncomplicated; F31.9 Bipolar disorder, unspecified; F41.9 Anxiety disorder, unspecified; Z79.899 Other long term (current) drug therapy
CPT/HCPCS: 96372; J3486

== ENCOUNTER 2018-06-01 13:49 | Outpatient (CLI) | payer OTHER ==
--- NOTE | 2018-06-01 15:22 | RAD ---
TWO VIEWS THORACIC SPINE: History: Disability exam. Comparison: None. FINDINGS: There is mild rightward curvature of the thoracic spine. There appear to be 11 thoracic type vertebra l bodies. No fracture. No malalignment. IMPRESSION: Unremarkable two views thoracic spine. POS: [facility]
== END 2018-06-01 13:50 | disposition home or self-care (01) ==
LOC: BICRAD 13:49
PROVIDERS: ATTEND Internal Medicine
DX: Z02.71 Encounter for disability determination (principal)
CPT/HCPCS: 72070

== ENCOUNTER 2018-07-02 17:47 | Emergency (ER) | payer SELFPAY ==
[2018-07-02 21:29] LABS: #Basophils 0.1 thou/uL (0.0-0.2); #Eosinphils 0.4 thou/uL (0.0-0.7); #Lymphocytes 3.3 thou/uL (1.20-3.40); #Monocytes 1.1 thou/uL (0.11-0.59); #Neutrophils 6.3 thou/uL (1.40-6.50); %Basophils 1.1 % (0.0-1.0); %Eosinophils 3.5 % (0.0-10.0); %Lymphocytes 29.6 % (21.0-51.0); %Monocytes 9.8 % (0.0-10.0); %Neutrophils 55.9 % (42.0-75.0); Hemoglobin 14.5 g/dL (12.0-16.0); Mean Corpuscular HGB CONC 34.3 g/dL (32.0-36.0); Mean Corpuscular Hemoglobin 32.5 pg (27.0-31.0); Mean Corpuscular Volume 94.7 fL (78.0-98.0); Mean Platelet Volume 7.6 fL (7.4-10.4); Platelet Count 296 thou/uL (130-400); RBC Distribution Width 12.7 % (11.5-14.5); Red Blood Cell (RBC) Count 4.47 mill/uL (4.20-5.40); White Blood Cell (WBC) Count 11.2 thou/uL (4.8-10.8)
[2018-07-02 21:57] LABS: Bilirubin Negative (Negative); Blood, Urine Small (Negative); Clarity CLEAR (Clear); Glucose, Urine (Dipstick) Negative (Negative); Leukocyte Negative (Negative); Nitrite Negative (Negative); Protein, Urine (Dipstick) Negative (Neg-Trace); Specific Gravity, Urine 1.005 (1.002-1.036); Urobilinogen 0.2 mg/dL (0.2-1.0)
[2018-07-02 21:58] LABS: ALT (SGPT) 25 U/L (8-55); AST (SGOT) 24 U/L (5-34); Albumin 4.1 g/dL (3.4-4.8); Alkaline Phosphatase 84 U/L (40-150); Anion Gap 11 mmol/L (10-20); BUN (Urea Nitrogen) 11 mg/dL (9.8-20.1); Bilirubin, Total 0.3 mg/dL (0.2-1.2); Calc. Creatinine Clearance 0 mL/min (70-130); Calcium 9.6 mg/dL (7.8-10.44); Carbon Dioxide 30 mmol/L (23-31); Chloride 97 mmol/L (98-107); Estimated GFR-MDRD 52; Globulin 2.9 g/dL (2.4-3.5); Glucose 98 mg/dL (80-115); Potassium 4.3 mmol/L (3.5-5.1); Sodium 134 mmol/L (136-145)
[2018-07-02 21:59] LABS: Bacteria/HPF None Seen HPF (None Seen); Hyaline Casts/LPF 0-3 HYALINE CAST LPF (0-3 Hyaline); Squamous Epithelial None Seen HPF (0-3); WBC/HPF None Seen HPF (0-3)
[2018-07-02 22:37] LABS: Amphetamine Not Detected (NotDetected); Barbiturates Screen Not Detected (NotDetected); Benzodiazepine Screen Detected (NotDetected); Cocaine Metabolite Screen Not Detected (NotDetected); Medtox Control Line Valid? VALID (VALID); Medtox Reader # READER 4; Methadone Not Detected (NotDetected); Methamphetamine Not Detected (NotDetected); Opiate Screen Not Detected (NotDetected); Oxycodone Screen Not Detected (NotDetected); Phencyclidine (PCP) Not Detected (NotDetected); THC/Cannabinoid Screen Not Detected (NotDetected); Tricyclic Screen Not Detected (NotDetected)
[2018-07-02 22:40] LABS: Acetaminophen Less than 6.0 mcg/mL (10.0-30.0); Alcohol Less than 10 mg/dL (Less than 10); Salicylate Less than 8.0 mg/dL (15.0-30.0)
--- NOTE | 2018-07-04 21:35 | EKG ---
Test Reason : Blood Pressure : / mmHG Vent. Rate : 078 BPM Atrial Rate : 078 BPM P-R Int : 166 ms QRS Dur : 078 ms QT Int : 416 ms P-R-T Axes : 031 048 069 degrees QTc Int : 474 ms Normal sinus rhythm Normal ECG Confirmed by DEV ISBELL ([id number]), international editorial producer IRLANDA LEUNG ([id number] on 07/04/2018 9:34:45 PM Referred By: Confirmed By:DEV ISBELL
== END 2018-07-02 23:57 | disposition home or self-care (01) ==
LOC: ERS 17:47
DX: F13.239 Sedative, hypnotic or anxiolytic dependence with withdrawal, unspecified (principal); L27.0 Generalized skin eruption due to drugs and medicaments taken internally; E78.5 Hyperlipidemia, unspecified; I10 Essential (primary) hypertension; J44.9 Chronic obstructive pulmonary disease, unspecified; K21.9 Gastro-esophageal reflux disease without esophagitis; F41.9 Anxiety disorder, unspecified; F31.9 Bipolar disorder, unspecified; F17.210 Nicotine dependence, cigarettes, uncomplicated; Z79.899 Other long term (current) drug therapy
CPT/HCPCS: 36415; 80053; 80306; 80307; 81003; 81015; 84484; 85025; 93005

== ENCOUNTER 2019-02-04 20:52 | Emergency (ER) | payer MEDICAID, SELFPAY ==
[2019-02-04 21:50] LABS: #Basophils 0.1 thou/uL (0.0-0.2); #Eosinphils 0.3 thou/uL (0.0-0.7); #Lymphocytes 3.2 thou/uL (1.20-3.40); #Monocytes 0.9 thou/uL (0.11-0.59); #Neutrophils 4.7 thou/uL (1.40-6.50); %Basophils 1.2 % (0.0-1.0); %Lymphocytes 34.7 % (21.0-51.0); %Monocytes 10.1 % (0.0-10.0); Hemoglobin 15.4 g/dL (12.0-16.0); Mean Corpuscular Volume 91.6 fL (78.0-98.0); Mean Platelet Volume 7.9 fL (7.4-10.4); Platelet Count 239 thou/uL (130-400); RBC Distribution Width 13.4 % (11.5-14.5); White Blood Cell (WBC) Count 9.3 thou/uL (4.8-10.8)
[2019-02-04 22:11] LABS: ALT (SGPT) 19 U/L (8-55); AST (SGOT) 20 U/L (5-34); Albumin 4.1 g/dL (3.4-4.8); Alkaline Phosphatase 82 U/L (40-110); Anion Gap 11 mmol/L (10-20); BUN (Urea Nitrogen) 7 mg/dL (9.8-20.1); Bilirubin, Total 0.3 mg/dL (0.2-1.2); Calc. Creatinine Clearance 0 mL/min (70-130); Calcium 9.9 mg/dL (7.8-10.44); Carbon Dioxide 31 mmol/L (23-31); Chloride 98 mmol/L (98-107); Estimated GFR-MDRD 62; Globulin 2.9 g/dL (2.4-3.5); Glucose 123 mg/dL (80-115); Lipase 19 U/L (8-78); Potassium 3.3 mmol/L (3.5-5.1); Sodium 137 mmol/L (136-145)
[2019-02-04] MEDS ORDERED: Ondansetron ODT 4 MG TAB ONE (22:23)
== END 2019-02-04 23:03 | disposition home or self-care (01) ==
LOC: ERS 20:52
DX: E87.6 Hypokalemia (principal); R11.0 Nausea; E78.5 Hyperlipidemia, unspecified; E78.00 Pure hypercholesterolemia, unspecified; I10 Essential (primary) hypertension; M19.90 Unspecified osteoarthritis, unspecified site; J44.9 Chronic obstructive pulmonary disease, unspecified; F41.9 Anxiety disorder, unspecified; F31.9 Bipolar disorder, unspecified; F17.210 Nicotine dependence, cigarettes, uncomplicated; Z79.899 Other long term (current) drug therapy
CPT/HCPCS: 36415; 80053; 83690; 85025; 93005; Q0162

== ENCOUNTER 2019-06-02 12:55 | Emergency (ER) | payer SELFPAY ==
[2019-06-02 13:45] LABS: Bacteria/HPF None Seen HPF (None Seen); Bilirubin Negative (Negative); Blood, Urine Trace (Negative); Clarity Clear (Clear); Glucose, Urine (Dipstick) Normal (Negative); Leukocyte Negative Leu/uL (Negative); Nitrite Negative (Negative); Protein, Urine (Dipstick) Negative (Neg-Trace); RBC/HPF 0-3 HPF (0-3); Squamous Epithelial None Seen HPF (0-3); Urobilinogen Normal mg/dL (Less than 2); WBC/HPF 0-3 HPF (0-3)
[2019-06-02] MEDS ORDERED: Diazepam 5 MG TAB ONE (15:07)
== END 2019-06-02 15:12 | disposition home or self-care (01) ==
LOC: ERS 12:55
DX: F41.9 Anxiety disorder, unspecified (principal); Z76.0 Encounter for issue of repeat prescription; E78.5 Hyperlipidemia, unspecified; E78.00 Pure hypercholesterolemia, unspecified; I10 Essential (primary) hypertension; M19.90 Unspecified osteoarthritis, unspecified site; J44.9 Chronic obstructive pulmonary disease, unspecified; F31.9 Bipolar disorder, unspecified; F17.210 Nicotine dependence, cigarettes, uncomplicated; Z79.899 Other long term (current) drug therapy
CPT/HCPCS: 81003; 81015; 99283

== ENCOUNTER 2020-06-13 23:21 | Emergency (ER) | payer SELFPAY ==
[2020-06-14 00:08] LABS: #Basophils 0.1 thou/uL (0.0-0.2); #Eosinphils 0.2 thou/uL (0.0-0.7); #Monocytes 0.9 thou/uL (0.11-0.59); #Neutrophils 9.9 thou/uL (1.40-6.50); %Basophils 0.7 % (0.0-1.0); %Eosinophils 1.4 % (0.0-10.0); %Lymphocytes 15.3 % (21.0-51.0); %Neutrophils 75.6 % (42.0-75.0); Hemoglobin 13.5 g/dL (12.0-16.0); Mean Corpuscular HGB CONC 35.6 g/dL (32.0-36.0); Mean Corpuscular Hemoglobin 33.5 pg (27.0-31.0); Mean Corpuscular Volume 94.2 fL (78.0-98.0); Mean Platelet Volume 7.4 fL (7.4-10.4); Platelet Count 221 thou/uL (130-400); RBC Distribution Width 12.1 % (11.5-14.5); Red Blood Cell (RBC) Count 4.01 mill/uL (4.20-5.40); White Blood Cell (WBC) Count 13.1 thou/uL (4.8-10.8)
[2020-06-14 00:54] LABS: ALT (SGPT) 26 U/L (8-55); AST (SGOT) 25 U/L (5-34); Albumin 3.6 g/dL (3.4-4.8); Alkaline Phosphatase 87 U/L (40-110); Anion Gap 14 mmol/L (10-20); BUN (Urea Nitrogen) 7 mg/dL (9.8-20.1); Bilirubin, Total 0.2 mg/dL (0.2-1.2); Calc. Creatinine Clearance 0 mL/min (70-130); Calcium 9.1 mg/dL (7.8-10.44); Carbon Dioxide 29 mmol/L (23-31); Chloride 99 mmol/L (98-107); Globulin 2.7 g/dL (2.4-3.5); Glucose 121 mg/dL (80-115); Potassium 3.2 mmol/L (3.5-5.1); Protein, Total 6.3 g/dL (5.8-8.1); Sodium 139 mmol/L (136-145)
--- NOTE | 2020-06-14 08:00 | RAD ---
Exam: Chest one view HISTORY:Pain. Shortness of breath. Comparison: 09/22/2017 FINDINGS: Cardiac silhouette: Normal Aorta: Unremarkable Pulmonary vessels: Normal Costophrenic angles: Clear LUNGS: No masses or consolidation. Pneumothorax: None Osseous abnormalities: None IMPRESSION: No acute cardiopulmonary process.
== END 2020-06-14 02:18 | disposition home or self-care (01) ==
LOC: ERS 23:21
DX: R55 Syncope and collapse (principal); E78.5 Hyperlipidemia, unspecified; E78.00 Pure hypercholesterolemia, unspecified; I10 Essential (primary) hypertension; M19.90 Unspecified osteoarthritis, unspecified site; J44.9 Chronic obstructive pulmonary disease, unspecified; F17.290 Nicotine dependence, other tobacco product, uncomplicated; F17.210 Nicotine dependence, cigarettes, uncomplicated
CPT/HCPCS: 36415; 71045; 80053; 84484; 85025; 93005

== ENCOUNTER 2020-08-08 14:59 | Inpatient (IN) | payer SELFPAY ==
[2020-08-08 16:36] LABS: #Basophils 0.1 thou/uL (0.0-0.2); #Eosinphils 0.1 thou/uL (0.0-0.7); #Monocytes 1.4 thou/uL (0.11-0.59); #Neutrophils 7.7 thou/uL (1.40-6.50); %Basophils 0.5 % (0.0-1.0); %Eosinophils 0.6 % (0.0-10.0); %Lymphocytes 24.2 % (21.0-51.0); %Monocytes 11.4 % (0.0-10.0); %Neutrophils 63.4 % (42.0-75.0); Hemoglobin 10.9 g/dL (12.0-16.0); Mean Corpuscular HGB CONC 34.7 g/dL (32.0-36.0); Mean Corpuscular Hemoglobin 31.9 pg (27.0-31.0); Mean Corpuscular Volume 92.1 fL (78.0-98.0); Mean Platelet Volume 7.5 fL (7.4-10.4); Platelet Count 267 thou/uL (130-400); RBC Distribution Width 12.6 % (11.5-14.5); Red Blood Cell (RBC) Count 3.41 mill/uL (4.20-5.40); White Blood Cell (WBC) Count 12.2 thou/uL (4.8-10.8)
[2020-08-08 16:58] LABS: ALT (SGPT) 20 U/L (8-55); AST (SGOT) 24 U/L (5-34); Albumin 3.6 g/dL (3.4-4.8); Alkaline Phosphatase 62 U/L (40-110); Anion Gap 13 mmol/L (10-20); BUN (Urea Nitrogen) 43 mg/dL (9.8-20.1); Bilirubin, Total 0.2 mg/dL (0.2-1.2); Calc. Creatinine Clearance 0 mL/min (70-130); Calcium 8.7 mg/dL (7.8-10.44); Carbon Dioxide 28 mmol/L (23-31); Chloride 94 mmol/L (98-107); Globulin 2.2 g/dL (2.4-3.5); Glucose 114 mg/dL (80-115); Protein, Total 5.8 g/dL (5.8-8.1); Sodium 132 mmol/L (136-145)
[2020-08-08 17:46] LABS: Bacteria/HPF None Seen HPF (None Seen); Bilirubin Negative (Negative); Blood, Urine 2+ (Negative); Clarity Clear (Clear); Glucose, Urine (Dipstick) Normal (Negative); Ketone, Urine Negative (Negative); Leukocyte 250 Leu/uL (Negative); Nitrite Negative (Negative); Protein, Urine (Dipstick) Negative (Neg-Trace); RBC/HPF 0-3 HPF (0-3); Squamous Epithelial 0-3 HPF (0-3); Urobilinogen Normal mg/dL (Less than 2); WBC/HPF 0-3 HPF (0-3); pH, Urine 5.5 (5.0-9.0)
[2020-08-08] MEDS ORDERED: Potassium Chloride 20 MEQ TAB ONE (17:58)
[2020-08-08] MEDS ORDERED: Pantoprazole 40 MG VIAL ONE (19:37)
[2020-08-08 20:35] VITALS: BMI 25.2
[2020-08-08] MEDS: Calcium Carbonate 500 MG ChewTAB PO PRN (22:20)
[2020-08-08] MEDS: cefTRIAXone\\ROCEPHIN 1 GM in Sodium Chloride 0.9% 100 ML IVPB SCH (22:22)
[2020-08-08] MEDS: Dextrose 5 % And 0.9 % NaCl 1,000 ML IV SCH (22:22)
[2020-08-08] MEDS ORDERED: Gabapentin 300 MG CAP PO SCH (22:30)
[2020-08-09] MEDS ORDERED: Melatonin 3 MG TAB PO SCH ×2 (01:45→21:45)
[2020-08-09 04:28] LABS: #Basophils 0.1 thou/uL (0.0-0.2); #Eosinphils 0.3 thou/uL (0.0-0.7); #Lymphocytes 3.7 thou/uL (1.20-3.40); #Monocytes 1.2 thou/uL (0.11-0.59); #Neutrophils 4.9 thou/uL (1.40-6.50); %Basophils 0.7 % (0.0-1.0); %Eosinophils 3.2 % (0.0-10.0); %Monocytes 11.9 % (0.0-10.0); %Neutrophils 48.2 % (42.0-75.0); Hemoglobin 8.3 g/dL (12.0-16.0); Mean Corpuscular HGB CONC 34.3 g/dL (32.0-36.0); Mean Corpuscular Hemoglobin 31.9 pg (27.0-31.0); Mean Corpuscular Volume 93.2 fL (78.0-98.0); Mean Platelet Volume 7.6 fL (7.4-10.4); Platelet Count 207 thou/uL (130-400); RBC Distribution Width 12.8 % (11.5-14.5); Red Blood Cell (RBC) Count 2.61 mill/uL (4.20-5.40); White Blood Cell (WBC) Count 10.2 thou/uL (4.8-10.8)
[2020-08-09 04:46] LABS: Anion Gap 10 mmol/L (10-20); BUN (Urea Nitrogen) 24 mg/dL (9.8-20.1); Calc. Creatinine Clearance 73 mL/min (70-130); Calcium 8.1 mg/dL (7.8-10.44); Carbon Dioxide 26 mmol/L (23-31); Chloride 105 mmol/L (98-107); Glucose 112 mg/dL (80-115); Potassium 3.6 mmol/L (3.5-5.1); Sodium 137 mmol/L (136-145)
[2020-08-09 05:22] LABS: SARS-CoV-2 PCR by NAA Not Detected (NotDetected)
[2020-08-09] MEDS: Pantoprazole 40 MG VIAL IVP SCH ×2 (09:17→19:58)
[2020-08-09] MEDS ORDERED: Nicotine 21 MG PATCH TD SCH (11:15)
[2020-08-09] MEDS ORDERED: Acetaminophen 325 MG TAB PO PRN (12:39)
[2020-08-09] MEDS: Dextrose 5 % And 0.9 % NaCl 1,000 ML IV SCH (16:59)
[2020-08-09] MEDS: HYDROcodone/Acetaminophen 5/325 mg Tablet PO PRN (17:21)
[2020-08-09] MEDS: Lidocaine 5% Patch TD SCH (17:22)
[2020-08-09] MEDS: Calcium Carbonate 500 MG ChewTAB PO PRN (18:42)
[2020-08-09] MEDS ORDERED: Ondansetron PF 4 MG/2 ML Vial IVP PRN (18:47)
[2020-08-09] MEDS: cefTRIAXone\\ROCEPHIN 1 GM in Sodium Chloride 0.9% 100 ML IVPB SCH (19:52)
[2020-08-09] MEDS: Gabapentin 300 MG CAP PO SCH (19:56)
[2020-08-09] MEDS: Mirtazapine 30 MG TAB PO SCH (19:57)
[2020-08-10] MEDS: HYDROcodone/Acetaminophen 5/325 mg Tablet PO PRN ×3 (01:55→20:28)
[2020-08-10] MEDS: Transdermal Patch Removal TOP SCH (05:27)
[2020-08-10 07:55] LABS: Anion Gap 8 mmol/L (10-20); BUN (Urea Nitrogen) 10 mg/dL (9.8-20.1); Calc. Creatinine Clearance 87 mL/min (70-130); Calcium 8.5 mg/dL (7.8-10.44); Carbon Dioxide 28 mmol/L (23-31); Chloride 106 mmol/L (98-107); Glucose 102 mg/dL (80-115); Iron 32 ug/dL (50-170); Iron Binding Capacity, Total 269 mcg/dL (265-497); Potassium 3.9 mmol/L (3.5-5.1); Sodium 138 mmol/L (136-145)
[2020-08-10 08:01] LABS: Reticulocyte Count 3.6 % (0.5-1.5)
[2020-08-10 08:06] LABS: #Basophils 0.1 thou/uL (0.0-0.2); #Eosinphils 0.4 thou/uL (0.0-0.7); #Lymphocytes 2.5 thou/uL (1.20-3.40); #Monocytes 0.7 thou/uL (0.11-0.59); #Neutrophils 2.9 thou/uL (1.40-6.50); %Eosinophils 6.3 % (0.0-10.0); %Lymphocytes 37.4 % (21.0-51.0); %Neutrophils 44.2 % (42.0-75.0); Hemoglobin 8.4 g/dL (12.0-16.0); Mean Corpuscular HGB CONC 34.1 g/dL (32.0-36.0); Mean Corpuscular Hemoglobin 32.3 pg (27.0-31.0); Mean Corpuscular Volume 94.7 fL (78.0-98.0); Mean Platelet Volume 7.8 fL (7.4-10.4); Platelet Count 192 thou/uL (130-400); RBC Distribution Width 13.1 % (11.5-14.5); White Blood Cell (WBC) Count 6.6 thou/uL (4.8-10.8)
[2020-08-10 08:43] LABS: Ferritin 20.32 ng/mL (10-291)
[2020-08-10] MEDS: Gabapentin 300 MG CAP PO SCH ×2 (08:49→20:29)
[2020-08-10] MEDS: Nicotine 21 MG PATCH TD SCH (08:49)
[2020-08-10] MEDS: Pantoprazole 40 MG VIAL IVP SCH ×2 (08:51→20:30)
[2020-08-10] MEDS: Diazepam 5 MG TAB PO PRN (12:51)
[2020-08-10] MEDS: Calcium Carbonate 500 MG ChewTAB PO PRN (15:46)
[2020-08-10] MEDS: Lidocaine 5% Patch TD SCH (16:35)
[2020-08-10] MEDS ORDERED: GoLYTELY 4,000 ml Bottle PO SCH (20:15)
[2020-08-10] MEDS: cefTRIAXone\\ROCEPHIN 1 GM in Sodium Chloride 0.9% 100 ML IVPB SCH (20:27)
[2020-08-10] MEDS: Mirtazapine 30 MG TAB PO SCH (20:29)
[2020-08-11] MEDS: Transdermal Patch Removal TOP SCH (03:39)
[2020-08-11 07:50] LABS: Hemoglobin 9.4 g/dL (12.0-16.0); Mean Corpuscular HGB CONC 35.7 g/dL (32.0-36.0); Mean Corpuscular Hemoglobin 33.9 pg (27.0-31.0); Mean Corpuscular Volume 94.7 fL (78.0-98.0); Mean Platelet Volume 7.6 fL (7.4-10.4); Platelet Count 232 thou/uL (130-400); RBC Distribution Width 13.2 % (11.5-14.5); Red Blood Cell (RBC) Count 2.78 mill/uL (4.20-5.40)
[2020-08-11] MEDS: Gabapentin 300 MG CAP PO SCH ×2 (08:03→20:27)
[2020-08-11] MEDS: Nicotine 21 MG PATCH TD SCH (08:03)
[2020-08-11] MEDS: Pantoprazole 40 MG VIAL IVP SCH (08:04)
[2020-08-11] MEDS: Diazepam 5 MG TAB PO PRN ×2 (11:56→23:50)
[2020-08-11] MEDS: Lidocaine 5% Patch TD SCH (15:18)
[2020-08-11] MEDS ORDERED: PHENYLEPHRINE-NS 100 MCG/ML 10 ML SYRINGE ONE (16:35)
[2020-08-11] MEDS ORDERED: PROPOFOL 200 MG/20 ML VIAL ONE (16:35)
[2020-08-11] MEDS ORDERED: Promethazine HCl 25 MG/ML VIAL IM PRN (17:47)
[2020-08-11] MEDS ORDERED: Ondansetron HCl/PF 4 MG/2 ML Vial IVP PRN (17:47)
[2020-08-11] MEDS ORDERED: Promethazine HCl 25 MG/ML VIAL SLOW IVP PRN (17:47)
[2020-08-11] MEDS: HYDROcodone/Acetaminophen 5/325 mg Tablet PO PRN (20:27)
[2020-08-11] MEDS: Mirtazapine 30 MG TAB PO SCH (20:28)
[2020-08-12] MEDS: Transdermal Patch Removal TOP SCH (05:01)
[2020-08-12] MEDS: Gabapentin 300 MG CAP PO SCH (08:29)
[2020-08-12] MEDS: Nicotine 21 MG PATCH TD SCH (08:30)
[2020-08-12 09:05] VITALS: TEMP 98.2
[2020-08-12] MEDS: HYDROcodone/Acetaminophen 5/325 mg Tablet PO PRN (12:24)
[2020-08-12 12:42] VITALS: BP 141/67
== END 2020-08-12 17:25 | disposition home or self-care (01) | DRG 377 ==
LOC: ERS 14:59 → 2SW 19:21 → OBSVTOIN 08-09 09:53
PROVIDERS: ADMIT Internal Medicine; ATTEND Internal Medicine
PROC: 0DB98ZX Excision of Duodenum, Via Natural or Artificial Opening Endoscopic, Diagnostic (ICD-10-PCS; principal; 2020-08-11)
PROC: 0DBM8ZX Excision of Descending Colon, Via Natural or Artificial Opening Endoscopic, Diagnostic (ICD-10-PCS; 2020-08-11)
PROC: 0DBN8ZX Excision of Sigmoid Colon, Via Natural or Artificial Opening Endoscopic, Diagnostic (ICD-10-PCS; 2020-08-11)
PROC: 0DBP8ZX Excision of Rectum, Via Natural or Artificial Opening Endoscopic, Diagnostic (ICD-10-PCS; 2020-08-11)
DX: K57.31 Diverticulosis of large intestine without perforation or abscess with bleeding (principal); G92 Toxic encephalopathy; N39.0 Urinary tract infection, site not specified; E87.1 Hypo-osmolality and hyponatremia; Z20.822 Contact with and (suspected) exposure to COVID-19; F31.9 Bipolar disorder, unspecified; G62.9 Polyneuropathy, unspecified; I10 Essential (primary) hypertension; F17.210 Nicotine dependence, cigarettes, uncomplicated; E78.5 Hyperlipidemia, unspecified; K63.5 Polyp of colon; K62.1 Rectal polyp; E86.0 Dehydration; D50.9 Iron deficiency anemia, unspecified; M19.90 Unspecified osteoarthritis, unspecified site; J44.9 Chronic obstructive pulmonary disease, unspecified; G89.4 Chronic pain syndrome; Z91.040 Latex allergy status
CPT/HCPCS: 36415; 70450; 71045; 80048; 80053; 81003; 81015; 82140; 82274; 82607; 82728; 82746; 83540; 83550; 83605; 84484; 85025; 85027; 85046; 87040; 87086; 87635; 88305; 93005; 96365; 96374; 96375; C9113; G0378; J0696; J2704; J3490; U0003; U0005

== ENCOUNTER 2020-10-26 19:26 | Inpatient (IN) | payer MEDICARE, SELFPAY ==
[2020-10-26 20:17] LABS: #Basophils 0.1 thou/uL (0.0-0.2); #Eosinphils 0.1 thou/uL (0.0-0.7); #Lymphocytes 1.8 thou/uL (1.20-3.40); #Monocytes 0.8 thou/uL (0.11-0.59); #Neutrophils 6.8 thou/uL (1.40-6.50); %Basophils 0.7 % (0.0-1.0); %Eosinophils 0.9 % (0.0-10.0); %Lymphocytes 18.4 % (21.0-51.0); %Monocytes 8.7 % (0.0-10.0); %Neutrophils 71.4 % (42.0-75.0); Hemoglobin 12.2 g/dL (12.0-16.0); Mean Corpuscular HGB CONC 35.9 g/dL (32.0-36.0); Mean Corpuscular Hemoglobin 33.7 pg (27.0-31.0); Mean Corpuscular Volume 93.9 fL (78.0-98.0); Mean Platelet Volume 7.1 fL (7.4-10.4); Platelet Count 252 thou/uL (130-400); RBC Distribution Width 12.5 % (11.5-14.5); Red Blood Cell (RBC) Count 3.61 mill/uL (4.20-5.40); White Blood Cell (WBC) Count 9.5 thou/uL (4.8-10.8)
[2020-10-26 20:35] LABS: ALT (SGPT) 19 U/L (8-55); AST (SGOT) 30 U/L (5-34); Albumin 3.7 g/dL (3.4-4.8); Alkaline Phosphatase 61 U/L (40-110); Anion Gap 15 mmol/L (10-20); BUN (Urea Nitrogen) 6 mg/dL (9.8-20.1); Bilirubin, Total 0.2 mg/dL (0.2-1.2); Calc. Creatinine Clearance 0 mL/min (70-130); Calcium 8.9 mg/dL (7.8-10.44); Carbon Dioxide 25 mmol/L (23-31); Chloride 91 mmol/L (98-107); Globulin 2.4 g/dL (2.4-3.5); Glucose 111 mg/dL (80-115); Protein, Total 6.1 g/dL (5.8-8.1); Sodium 128 mmol/L (136-145)
[2020-10-26 20:37] LABS: Potassium 2.9 mmol/L (3.5-5.1)
[2020-10-26] MEDS ORDERED: Magnesium 2 GM/50 ML BAG (IN WATER) ONE (21:11)
[2020-10-26] MEDS ORDERED: Potassium Chloride 20 MEQ TAB ONE (21:11)
[2020-10-26] MEDS ORDERED: levETIRAcetam 500 MG TAB PO SCH (21:15)
[2020-10-26] MEDS ORDERED: Lorazepam 2 MG/ML VIAL ONE (21:21)
[2020-10-26] MEDS ORDERED: levETIRAcetam in NS 200 ML ONE (21:23)
[2020-10-26 21:47] LABS: Bacteria/HPF None Seen HPF (None Seen); Bilirubin Negative (Negative); Blood, Urine 1+ (Negative); Clarity Clear (Clear); Glucose, Urine (Dipstick) Normal (Negative); Ketone, Urine Negative (Negative); Leukocyte Negative Leu/uL (Negative); Nitrite Negative (Negative); Protein, Urine (Dipstick) Negative (Neg-Trace); Specific Gravity, Urine 1.008 (1.002-1.036); Squamous Epithelial None Seen HPF (0-3); Urobilinogen Normal mg/dL (Less than 2); WBC/HPF 0-3 HPF (0-3)
[2020-10-26 21:58] LABS: Medtox Reader # READER 4; Opiate Screen Detected (NotDetected)
[2020-10-26 21:59] LABS: Amphetamine Not Detected (NotDetected); Barbiturates Screen Not Detected (NotDetected); Benzodiazepine Screen Detected (NotDetected); Cocaine Metabolite Screen Not Detected (NotDetected); Medtox Control Line Valid? VALID (VALID); Methadone Not Detected (NotDetected); Methamphetamine Not Detected (NotDetected); Oxycodone Screen Not Detected (NotDetected); Phencyclidine (PCP) Not Detected (NotDetected); THC/Cannabinoid Screen Not Detected (NotDetected); Tricyclic Screen Not Detected (NotDetected)
[2020-10-26] MEDS ORDERED: Ondansetron PF 4 MG/2 ML Vial IVP PRN (23:32)
[2020-10-26] MEDS ORDERED: Ondansetron ODT 4 MG TAB PO PRN (23:32)
[2020-10-26] MEDS ORDERED: Acetaminophen 650 MG Suppository PR PRN (23:32)
[2020-10-26] MEDS ORDERED: Acetaminophen 325 MG TAB PO PRN (23:32)
[2020-10-27 04:59] LABS: #Basophils 0.1 thou/uL (0.0-0.2); #Eosinphils 0.4 thou/uL (0.0-0.7); #Monocytes 1.2 thou/uL (0.11-0.59); #Neutrophils 6.5 thou/uL (1.40-6.50); %Basophils 0.8 % (0.0-1.0); %Eosinophils 3.4 % (0.0-10.0); %Lymphocytes 32.6 % (21.0-51.0); %Monocytes 9.9 % (0.0-10.0); %Neutrophils 53.3 % (42.0-75.0); Hemoglobin 12.8 g/dL (12.0-16.0); Mean Corpuscular HGB CONC 35.7 g/dL (32.0-36.0); Mean Corpuscular Hemoglobin 33.9 pg (27.0-31.0); Mean Corpuscular Volume 94.9 fL (78.0-98.0); Mean Platelet Volume 7.3 fL (7.4-10.4); Platelet Count 333 thou/uL (130-400); RBC Distribution Width 12.6 % (11.5-14.5); Red Blood Cell (RBC) Count 3.77 mill/uL (4.20-5.40); White Blood Cell (WBC) Count 12.2 thou/uL (4.8-10.8)
[2020-10-27 05:26] LABS: Anion Gap 14 mmol/L (10-20); BUN (Urea Nitrogen) 6 mg/dL (9.8-20.1); Calc. Creatinine Clearance 0 mL/min (70-130); Calcium 9.1 mg/dL (7.8-10.44); Carbon Dioxide 26 mmol/L (23-31); Chloride 98 mmol/L (98-107); Glucose 88 mg/dL (80-115); Magnesium 2.3 mg/dL (1.6-2.6); Potassium 3.8 mmol/L (3.5-5.1); Sodium 134 mmol/L (136-145)
[2020-10-27] MEDS: Enoxaparin Sodium 40 MG/0.4 ML SYRINGE SC SCH (09:18)
[2020-10-27] MEDS ORDERED: levETIRAcetam in NS 1,000 MG in Premix Bag 1 BAG IVPB SCH ×2 (11:00→21:00)
[2020-10-27] MEDS ORDERED: Diazepam 5 MG TAB PO PRN ×2 (11:30→12:00)
[2020-10-27 11:44] LABS: SARS-CoV-2 PCR by NAA Not Detected (NotDetected)
[2020-10-27] MEDS ORDERED: Benztropine 1 MG TAB PO SCH (12:30)
[2020-10-27] MEDS ORDERED: Lisinopril 10 MG TAB PO SCH ×2 (12:30)
[2020-10-27] MEDS ORDERED: Ziprasidone 60 MG CAP PO SCH (12:30)
[2020-10-27] MEDS ORDERED: levETIRAcetam 500 MG TAB PO SCH (12:30)
[2020-10-27] MEDS ORDERED: Gabapentin 300 MG CAP PO SCH (12:30)
[2020-10-27 12:31] VITALS: BMI 24.0
[2020-10-27] MEDS ORDERED: guaiFENesin ER 600 MG TAB PO PRN (19:29)
[2020-10-27] MEDS: levETIRAcetam 500 MG TAB PO SCH (20:14)
[2020-10-27] MEDS: Benztropine 1 MG TAB PO SCH (20:14)
[2020-10-27] MEDS: Benzonatate 100 MG CAP PO PRN (20:14)
[2020-10-27] MEDS: Gabapentin 300 MG CAP PO SCH (20:15)
[2020-10-27] MEDS: Ziprasidone 60 MG CAP PO SCH (20:15)
[2020-10-27] MEDS ORDERED: Mirtazapine 30 MG TAB PO SCH (21:00)
[2020-10-28 05:03] LABS: #Basophils 0.1 thou/uL (0.0-0.2); #Eosinphils 0.4 thou/uL (0.0-0.7); #Lymphocytes 3.3 thou/uL (1.20-3.40); #Monocytes 1.1 thou/uL (0.11-0.59); #Neutrophils 4.3 thou/uL (1.40-6.50); %Basophils 1.2 % (0.0-1.0); %Eosinophils 4.3 % (0.0-10.0); %Lymphocytes 35.8 % (21.0-51.0); %Neutrophils 46.7 % (42.0-75.0); Hemoglobin 13.9 g/dL (12.0-16.0); Mean Corpuscular Hemoglobin 33.3 pg (27.0-31.0); Mean Corpuscular Volume 95.1 fL (78.0-98.0); Mean Platelet Volume 7.1 fL (7.4-10.4); Platelet Count 271 thou/uL (130-400); RBC Distribution Width 12.7 % (11.5-14.5); Red Blood Cell (RBC) Count 4.19 mill/uL (4.20-5.40); White Blood Cell (WBC) Count 9.1 thou/uL (4.8-10.8)
[2020-10-28 06:24] LABS: Anion Gap 15 mmol/L (10-20); BUN (Urea Nitrogen) 9 mg/dL (9.8-20.1); Calc. Creatinine Clearance 74 mL/min (70-130); Calcium 9.2 mg/dL (7.8-10.44); Carbon Dioxide 24 mmol/L (23-31); Chloride 106 mmol/L (98-107); Glucose 84 mg/dL (80-115); Potassium 3.6 mmol/L (3.5-5.1); Sodium 141 mmol/L (136-145)
[2020-10-28] MEDS ORDERED: Lisinopril 10 MG TAB PO SCH (09:00)
[2020-10-28] MEDS ORDERED: Nicotine 21 MG PATCH TD SCH (09:00)
[2020-10-28] MEDS: Gabapentin 300 MG CAP PO SCH (09:10)
[2020-10-28] MEDS: levETIRAcetam 500 MG TAB PO SCH (09:11)
[2020-10-28] MEDS: Benzonatate 100 MG CAP PO PRN (09:11)
[2020-10-28] MEDS: Benztropine 1 MG TAB PO SCH (09:11)
[2020-10-28] MEDS: Enoxaparin Sodium 40 MG/0.4 ML SYRINGE SC SCH (09:11)
[2020-10-28] MEDS: Ziprasidone 60 MG CAP PO SCH (09:54)
[2020-10-28 11:37] VITALS: BP 147/85; TEMP 98.1
== END 2020-10-28 15:03 | disposition home or self-care (01) | DRG 101 ==
LOC: ERS 19:26 → ERHOLD 22:00 → OBSVTOIN 10-27 11:19 → 2SE 10-27 12:24
PROVIDERS: ADMIT Student in an Organized Health Care Education/Training Program; ATTEND Internal Medicine
DX: G40.409 Other generalized epilepsy and epileptic syndromes, not intractable, without status epilepticus (principal); E87.1 Hypo-osmolality and hyponatremia; F31.9 Bipolar disorder, unspecified; Z20.822 Contact with and (suspected) exposure to COVID-19; Z23 Encounter for immunization; G89.4 Chronic pain syndrome; E78.5 Hyperlipidemia, unspecified; I10 Essential (primary) hypertension; M54.9 Dorsalgia, unspecified; F41.9 Anxiety disorder, unspecified; M19.90 Unspecified osteoarthritis, unspecified site; E78.00 Pure hypercholesterolemia, unspecified; F17.210 Nicotine dependence, cigarettes, uncomplicated; E87.6 Hypokalemia; F11.10 Opioid abuse, uncomplicated; J44.9 Chronic obstructive pulmonary disease, unspecified; Z91.040 Latex allergy status; Z79.899 Other long term (current) drug therapy; Z90.89 Acquired absence of other organs
CPT/HCPCS: 36415; 70450; 71045; 80048; 80053; 80306; 81003; 81015; 83735; 85025; 90471; 90732; 93005; 95712; 95819; 95957; 96372; G0009; G0378; J1650; J1953; J2060; J3475; U0003; U0005

== ENCOUNTER 2021-04-18 19:14 | Emergency (ER) | payer MEDICARE ==
[2021-04-18] MEDS ORDERED: Acetaminophen 500 MG TAB ONE (19:40)
[2021-04-18 20:01] LABS: #Basophils 0.1 thou/uL (0.0-0.2); #Eosinphils 0.1 thou/uL (0.0-0.7); #Lymphocytes 2.3 thou/uL (1.20-3.40); #Monocytes 0.3 thou/uL (0.11-0.59); #Neutrophils 4.5 thou/uL (1.40-6.50); %Eosinophils 1.8 % (0.0-10.0); %Lymphocytes 30.7 % (21.0-51.0); %Monocytes 4.7 % (0.0-10.0); %Neutrophils 61.8 % (42.0-75.0); Hemoglobin 13.1 g/dL (12.0-16.0); Mean Corpuscular HGB CONC 34.9 g/dL (32.0-36.0); Mean Corpuscular Hemoglobin 33.8 pg (27.0-31.0); Mean Corpuscular Volume 96.6 fL (78.0-98.0); Mean Platelet Volume 6.5 fL (7.4-10.4); Platelet Count 211 thou/uL (130-400); RBC Distribution Width 12.2 % (11.5-14.5); Red Blood Cell (RBC) Count 3.87 mill/uL (4.20-5.40); White Blood Cell (WBC) Count 7.3 thou/uL (4.8-10.8)
[2021-04-18 21:01] LABS: ALT (SGPT) 21 U/L (8-55); AST (SGOT) 21 U/L (5-34); Albumin 3.9 g/dL (3.4-4.8); Alkaline Phosphatase 66 U/L (40-110); Anion Gap 14 mmol/L (10-20); BUN (Urea Nitrogen) 12 mg/dL (9.8-20.1); Bilirubin, Total 0.3 mg/dL (0.2-1.2); Calc. Creatinine Clearance 0 mL/min (70-130); Calcium 9.1 mg/dL (7.8-10.44); Carbon Dioxide 25 mmol/L (23-31); Chloride 101 mmol/L (98-107); Globulin 2.5 g/dL (2.4-3.5); Glucose 126 mg/dL (80-115); Potassium 3.1 mmol/L (3.5-5.1); Protein, Total 6.4 g/dL (5.8-8.1); Sodium 137 mmol/L (136-145)
[2021-04-18 21:45] LABS: SARS-CoV-2 NAA Rapid Test Not Detected (NotDetected)
[2021-04-18] MEDS ORDERED: Potassium Chloride 20 MEQ TAB ONE (22:02)
== END 2021-04-18 21:25 | disposition home or self-care (01) ==
LOC: ERS 19:14
DX: J44.1 Chronic obstructive pulmonary disease with (acute) exacerbation (principal); E86.0 Dehydration; I10 Essential (primary) hypertension; E78.5 Hyperlipidemia, unspecified; M19.90 Unspecified osteoarthritis, unspecified site; F17.210 Nicotine dependence, cigarettes, uncomplicated; Z20.822 Contact with and (suspected) exposure to COVID-19; Z79.899 Other long term (current) drug therapy
CPT/HCPCS: 71045; 80053; 83605; 83880; 84484; 85025; 87040; 93005; U0002; 36415

== ENCOUNTER 2021-05-13 14:07 | Inpatient (IN) | payer MEDICARE, OTHER ==
[2021-05-13] MEDS ORDERED: Metoclopramide HCl 10 MG/2 ML VIAL ONE (14:47)
[2021-05-13 14:51] LABS: #Lymphocytes 1.4 thou/uL (1.20-3.40); #Monocytes 1.4 thou/uL (0.11-0.59); #Neutrophils 16.3 thou/uL (1.40-6.50); %Basophils 0.2 % (0.0-1.0); %Eosinophils 0.1 % (0.0-10.0); %Lymphocytes 7.2 % (21.0-51.0); %Monocytes 7.5 % (0.0-10.0); Hemoglobin 11.8 g/dL (12.0-16.0); Mean Corpuscular HGB CONC 34.9 g/dL (32.0-36.0); Mean Corpuscular Hemoglobin 32.7 pg (27.0-31.0); Mean Corpuscular Volume 93.7 fL (78.0-98.0); Mean Platelet Volume 6.9 fL (7.4-10.4); Platelet Count 266 thou/uL (130-400); RBC Distribution Width 11.7 % (11.5-14.5); Red Blood Cell (RBC) Count 3.62 mill/uL (4.20-5.40); White Blood Cell (WBC) Count 19.2 thou/uL (4.8-10.8)
[2021-05-13 15:11] LABS: ALT (SGPT) 19 U/L (8-55); AST (SGOT) 22 U/L (5-34); Albumin 3.4 g/dL (3.4-4.8); Alkaline Phosphatase 74 U/L (40-110); Anion Gap 13 mmol/L (10-20); BUN (Urea Nitrogen) 6 mg/dL (9.8-20.1); Bilirubin, Total 0.5 mg/dL (0.2-1.2); Calc. Creatinine Clearance 0 mL/min (70-130); Calcium 9.4 mg/dL (7.8-10.44); Carbon Dioxide 30 mmol/L (23-31); Chloride 95 mmol/L (98-107); Glucose 118 mg/dL (80-115); Lipase 15 U/L (8-78); Magnesium 1.4 mg/dL (1.6-2.6); Protein, Total 6.4 g/dL (5.8-8.1); Sodium 135 mmol/L (136-145)
[2021-05-13 15:16] LABS: Potassium 2.5 mmol/L (3.5-5.1)
[2021-05-13 16:06] LABS: Bacteria/HPF None Seen HPF (None Seen); Bilirubin Negative (Negative); Blood, Urine 1+ (Negative); Clarity Clear (Clear); Glucose, Urine (Dipstick) Normal (Negative); Ketone, Urine Negative (Negative); Leukocyte Negative Leu/uL (Negative); Nitrite Negative (Negative); Protein, Urine (Dipstick) Negative (Neg-Trace); RBC/HPF 0-3 HPF (0-3); Specific Gravity, Urine 1.003 (1.002-1.036); Squamous Epithelial None Seen HPF (0-3); Urobilinogen Normal mg/dL (Less than 2); WBC/HPF 0-3 HPF (0-3)
[2021-05-13] MEDS ORDERED: Magnesium 2 GM/50 ML BAG (IN WATER) ONE (16:18)
[2021-05-13] MEDS ORDERED: Potassium Chloride 20 MEQ TAB ONE (16:58)
[2021-05-13] MEDS ORDERED: NS 0.9% w/ 40 MEQ KCL 1,000 ML IV SCH (17:30)
[2021-05-13] MEDS ORDERED: Ondansetron PF 4 MG/2 ML Vial IVP PRN (18:53)
[2021-05-13] MEDS ORDERED: Senokot S 8.6-50 MG TAB PO PRN (18:53)
[2021-05-13] MEDS ORDERED: Ondansetron ODT 4 MG TAB PO PRN (18:53)
[2021-05-13] MEDS ORDERED: Lorazepam 2 MG/ML VIAL ONE (18:57)
[2021-05-13] MEDS ORDERED: guaiFENesin 200 MG TAB PO PRN (19:07)
[2021-05-13] MEDS ORDERED: Lorazepam 2 MG/ML VIAL SLOW IVP SCH (19:15)
[2021-05-13] MEDS ORDERED: Meropenem 1 GM in Sodium Chloride 0.9% 100 ML IVPB SCH ×2 (19:30→22:00)
[2021-05-13] MEDS ORDERED: Albuterol Sulfate 2.5 mg/3 ml Neb NEB PRN (19:57)
[2021-05-13] MEDS ORDERED: cefTRIAXone\\ROCEPHIN 1 GM in Sodium Chloride 0.9% 100 ML IVPB SCH (20:00)
[2021-05-13] MEDS ORDERED: Electrolyte Replacement Protocol 1 EACH FS SCH (20:30)
[2021-05-13 20:58] LABS: SARS-CoV-2 NAA Rapid Test DETECTED (NotDetected)
[2021-05-13 21:35] VITALS: BMI 22.6
[2021-05-13] MEDS ORDERED: levETIRAcetam 500 MG TAB PO SCH (22:15)
[2021-05-13] MEDS: Nicotine 14 MG PATCH TD SCH (22:20)
[2021-05-13] MEDS: Sodium Chloride 0.9% 1,000 ML IV SCH (22:21)
[2021-05-13] MEDS: Famotidine 20 MG TAB PO SCH (22:22)
[2021-05-13] MEDS: Acetaminophen 325 MG TAB PO PRN (22:22)
[2021-05-13] MEDS: Lithium Carbonate 150 MG CAP PO SCH ×2 (22:22→22:46)
[2021-05-13 22:34] LABS: Phosphorus 3.2 mg/dL (2.3-4.7)
[2021-05-13 22:37] LABS: Anion Gap 11 mmol/L (10-20); BUN (Urea Nitrogen) 7 mg/dL (9.8-20.1); Calc. Creatinine Clearance 77 mL/min (70-130); Calcium 8.8 mg/dL (7.8-10.44); Carbon Dioxide 27 mmol/L (23-31); Chloride 100 mmol/L (98-107); Glucose 104 mg/dL (80-115); Magnesium 2.5 mg/dL (1.6-2.6); Potassium 3.2 mmol/L (3.5-5.1); Sodium 135 mmol/L (136-145)
[2021-05-14] MEDS: Sodium Chloride 0.9% 1,000 ML IV SCH ×2 (03:48→11:40)
[2021-05-14] MEDS: Acetaminophen 325 MG TAB PO PRN (03:48)
[2021-05-14] MEDS ORDERED: Meropenem 1 GM in Sodium Chloride 0.9% 100 ML IVPB SCH (04:00)
[2021-05-14 05:29] LABS: #Basophils 0.1 thou/uL (0.0-0.2); #Eosinphils 0.2 thou/uL (0.0-0.7); #Lymphocytes 1.9 thou/uL (1.20-3.40); #Monocytes 1.3 thou/uL (0.11-0.59); #Neutrophils 9.9 thou/uL (1.40-6.50); %Basophils 0.4 % (0.0-1.0); %Eosinophils 1.4 % (0.0-10.0); %Lymphocytes 14.5 % (21.0-51.0); %Monocytes 9.8 % (0.0-10.0); %Neutrophils 73.9 % (42.0-75.0); Hemoglobin 11.3 g/dL (12.0-16.0); Mean Corpuscular HGB CONC 33.7 g/dL (32.0-36.0); Mean Corpuscular Hemoglobin 32.4 pg (27.0-31.0); Mean Corpuscular Volume 96.2 fL (78.0-98.0); Mean Platelet Volume 6.8 fL (7.4-10.4); Platelet Count 266 thou/uL (130-400); Red Blood Cell (RBC) Count 3.47 mill/uL (4.20-5.40); White Blood Cell (WBC) Count 13.3 thou/uL (4.8-10.8)
[2021-05-14] MEDS: Metoclopramide HCl 10 MG/2 ML VIAL IVP PRN ×2 (05:55→09:26)
[2021-05-14] MEDS: Meropenem 1 GM in Sodium Chloride 0.9% 100 ML IVPB SCH ×3 (05:55→22:06)
[2021-05-14 05:57] LABS: Anion Gap 13 mmol/L (10-20); BUN (Urea Nitrogen) 6 mg/dL (9.8-20.1); Calc. Creatinine Clearance 83 mL/min (70-130); Calcium 8.7 mg/dL (7.8-10.44); Carbon Dioxide 22 mmol/L (23-31); Chloride 102 mmol/L (98-107); Glucose 121 mg/dL (80-115); Potassium 3.7 mmol/L (3.5-5.1); Sodium 133 mmol/L (136-145)
[2021-05-14] MEDS ORDERED: FLU VACC QS2021-22(65YR UP)/PF 240 MCG/0.7 ML SYRINGE IM ONE (09:00)
[2021-05-14] MEDS: Gabapentin 300 MG CAP PO SCH ×2 (09:25→20:34)
[2021-05-14] MEDS: Ascorbic Acid 500 mg Chewable Tablet PO SCH (09:25)
[2021-05-14] MEDS: Famotidine 20 MG TAB PO SCH ×2 (09:25→20:34)
[2021-05-14] MEDS: Ziprasidone 60 MG CAP PO SCH ×2 (09:25→20:35)
[2021-05-14] MEDS: Lithium Carbonate 150 MG CAP PO SCH ×3 (09:26→20:34)
[2021-05-14] MEDS: Zinc Sulfate 220 MG CAP PO SCH (09:26)
[2021-05-14] MEDS: levETIRAcetam 500 MG TAB PO SCH ×3 (09:26→20:51)
[2021-05-14] MEDS: Benzonatate 100 MG CAP PO PRN (16:15)
[2021-05-14] MEDS: guaiFENesin/Codeine 200 mg/20 mg 10 ml Cup PO PRN (17:53)
[2021-05-14] MEDS ORDERED: Albuterol 200 PUFF (6.7GM INHALER) INH PRN (18:17)
[2021-05-14] MEDS: Nicotine 14 MG PATCH TD SCH (20:35)
[2021-05-15 05:11] LABS: #Eosinphils 0.3 thou/uL (0.0-0.7); #Lymphocytes 2.1 thou/uL (1.20-3.40); #Neutrophils 5.6 thou/uL (1.40-6.50); %Basophils 0.4 % (0.0-1.0); %Eosinophils 3.3 % (0.0-10.0); %Lymphocytes 22.9 % (21.0-51.0); %Monocytes 11.3 % (0.0-10.0); %Neutrophils 62.1 % (42.0-75.0); Hemoglobin 9.9 g/dL (12.0-16.0); Mean Corpuscular HGB CONC 33.5 g/dL (32.0-36.0); Mean Corpuscular Hemoglobin 32.6 pg (27.0-31.0); Mean Corpuscular Volume 97.3 fL (78.0-98.0); Mean Platelet Volume 7.1 fL (7.4-10.4); Platelet Count 261 thou/uL (130-400); RBC Distribution Width 12.1 % (11.5-14.5); Red Blood Cell (RBC) Count 3.03 mill/uL (4.20-5.40)
[2021-05-15 05:32] LABS: Anion Gap 11 mmol/L (10-20); BUN (Urea Nitrogen) 4 mg/dL (9.8-20.1); Calc. Creatinine Clearance 81 mL/min (70-130); Calcium 8.5 mg/dL (7.8-10.44); Carbon Dioxide 22 mmol/L (23-31); Chloride 111 mmol/L (98-107); Glucose 93 mg/dL (80-115); Potassium 3.9 mmol/L (3.5-5.1); Sodium 140 mmol/L (136-145)
[2021-05-15] MEDS: Meropenem 1 GM in Sodium Chloride 0.9% 100 ML IVPB SCH ×3 (06:10→21:54)
[2021-05-15] MEDS: Ascorbic Acid 500 mg Chewable Tablet PO SCH (11:42)
[2021-05-15] MEDS: Zinc Sulfate 220 MG CAP PO SCH (11:43)
[2021-05-15] MEDS: Lithium Carbonate 150 MG CAP PO SCH ×2 (11:43→20:02)
[2021-05-15] MEDS: Famotidine 20 MG TAB PO SCH ×2 (11:43→20:01)
[2021-05-15] MEDS: levETIRAcetam 500 MG TAB PO SCH ×2 (11:43→20:01)
[2021-05-15] MEDS: Gabapentin 300 MG CAP PO SCH ×2 (11:50→20:01)
[2021-05-15] MEDS ORDERED: Ziprasidone 60 MG CAP PO SCH (12:00)
[2021-05-15] MEDS: Ziprasidone 60 MG CAP PO SCH ×2 (12:18→20:05)
[2021-05-15] MEDS: Nicotine 14 MG PATCH TD SCH (20:02)
[2021-05-15] MEDS: Acetaminophen 325 MG TAB PO PRN (20:10)
[2021-05-15] MEDS: guaiFENesin/Codeine 200 mg/20 mg 10 ml Cup PO PRN (20:10)
[2021-05-16] MEDS: Meropenem 1 GM in Sodium Chloride 0.9% 100 ML IVPB SCH ×3 (05:33→21:51)
[2021-05-16 08:03] LABS: #Eosinphils 0.3 thou/uL (0.0-0.7); #Lymphocytes 1.7 thou/uL (1.20-3.40); #Monocytes 0.9 thou/uL (0.11-0.59); #Neutrophils 5.7 thou/uL (1.40-6.50); %Basophils 0.4 % (0.0-1.0); %Eosinophils 3.8 % (0.0-10.0); %Lymphocytes 19.7 % (21.0-51.0); %Monocytes 10.8 % (0.0-10.0); %Neutrophils 65.2 % (42.0-75.0); Mean Corpuscular HGB CONC 32.6 g/dL (32.0-36.0); Mean Corpuscular Hemoglobin 31.8 pg (27.0-31.0); Mean Corpuscular Volume 97.3 fL (78.0-98.0); Mean Platelet Volume 7.1 fL (7.4-10.4); Platelet Count 282 thou/uL (130-400); RBC Distribution Width 12.1 % (11.5-14.5); Red Blood Cell (RBC) Count 3.46 mill/uL (4.20-5.40); White Blood Cell (WBC) Count 8.7 thou/uL (4.8-10.8)
[2021-05-16 08:23] LABS: ALT (SGPT) 31 U/L (8-55); AST (SGOT) 18 U/L (5-34); Albumin 3.1 g/dL (3.4-4.8); Alkaline Phosphatase 78 U/L (40-110); Anion Gap 12 mmol/L (10-20); BUN (Urea Nitrogen) 8 mg/dL (9.8-20.1); Bilirubin, Total 0.2 mg/dL (0.2-1.2); CRP (Inflammatory) 2.02 mg/dL (= or < 0.5); Calc. Creatinine Clearance 0 mL/min (70-130); Calcium 8.8 mg/dL (7.8-10.44); Carbon Dioxide 23 mmol/L (23-31); Chloride 107 mmol/L (98-107); Globulin 2.8 g/dL (2.4-3.5); Glucose 94 mg/dL (80-115); Potassium 4.3 mmol/L (3.5-5.1); Protein, Total 5.9 g/dL (5.8-8.1); Sodium 138 mmol/L (136-145)
[2021-05-16] MEDS: Famotidine 20 MG TAB PO SCH ×2 (08:36→21:50)
[2021-05-16] MEDS: Zinc Sulfate 220 MG CAP PO SCH (08:37)
[2021-05-16] MEDS: Gabapentin 300 MG CAP PO SCH ×2 (08:37→21:50)
[2021-05-16] MEDS: Ascorbic Acid 500 mg Chewable Tablet PO SCH (08:37)
[2021-05-16] MEDS: levETIRAcetam 500 MG TAB PO SCH ×2 (08:37→21:50)
[2021-05-16] MEDS: Acetaminophen 325 MG TAB PO PRN ×2 (08:38→14:31)
[2021-05-16] MEDS: Benzonatate 100 MG CAP PO PRN (08:38)
[2021-05-16] MEDS: predniSONE 20 MG TAB PO SCH (08:38)
[2021-05-16] MEDS: Ziprasidone 60 MG CAP PO SCH ×2 (08:39→21:50)
[2021-05-16] MEDS: Lithium Carbonate 150 MG CAP PO SCH ×3 (08:40→22:11)
[2021-05-16] MEDS ORDERED: Acetaminophen/Codeine 30-300mg Tablet PO PRN (15:07)
[2021-05-16] MEDS: Nicotine 14 MG PATCH TD SCH (21:51)
[2021-05-17] MEDS: Meropenem 1 GM in Sodium Chloride 0.9% 100 ML IVPB SCH (06:20)
[2021-05-17] MEDS ORDERED: Labetalol HCl 100 MG/20 ML VIAL ONE (06:22)
[2021-05-17] MEDS: Ascorbic Acid 500 mg Chewable Tablet PO SCH (08:11)
[2021-05-17] MEDS: Zinc Sulfate 220 MG CAP PO SCH (08:11)
[2021-05-17] MEDS: predniSONE 20 MG TAB PO SCH (08:11)
[2021-05-17] MEDS: Famotidine 20 MG TAB PO SCH (08:11)
[2021-05-17] MEDS: Gabapentin 300 MG CAP PO SCH (08:11)
[2021-05-17] MEDS: Lithium Carbonate 150 MG CAP PO SCH (08:12)
[2021-05-17] MEDS: Benzonatate 100 MG CAP PO PRN (08:12)
[2021-05-17] MEDS: Ziprasidone 60 MG CAP PO SCH (08:12)
[2021-05-17] MEDS: levETIRAcetam 500 MG TAB PO SCH (08:13)
[2021-05-17 08:21] VITALS: BP 149/92; TEMP 98.1
== END 2021-05-17 14:37 | disposition home or self-care (01) | DRG 193 ==
LOC: ERS 14:07 → ERHOLD 16:35 → 2NO 21:00 → T4-A 05-15 19:24
PROVIDERS: ADMIT Internal Medicine; ATTEND Family Medicine
PROC: 8E0ZXY6 Isolation (ICD-10-PCS; principal; 2021-05-13)
DX: J18.9 Pneumonia, unspecified organism (principal); U07.1 COVID-19; J44.0 Chronic obstructive pulmonary disease with (acute) lower respiratory infection; J44.1 Chronic obstructive pulmonary disease with (acute) exacerbation; E86.0 Dehydration; E78.5 Hyperlipidemia, unspecified; I10 Essential (primary) hypertension; G89.29 Other chronic pain; M19.90 Unspecified osteoarthritis, unspecified site; F41.9 Anxiety disorder, unspecified; F31.9 Bipolar disorder, unspecified; F17.210 Nicotine dependence, cigarettes, uncomplicated; E87.6 Hypokalemia; E83.42 Hypomagnesemia; D64.9 Anemia, unspecified; R73.9 Hyperglycemia, unspecified; G40.909 Epilepsy, unspecified, not intractable, without status epilepticus; Z90.49 Acquired absence of other specified parts of digestive tract; Z91.040 Latex allergy status; Z79.899 Other long term (current) drug therapy
CPT/HCPCS: 36415; 71045; 74177; 80048; 80053; 80178; 81003; 81015; 82728; 83605; 83690; 83735; 84100; 84484; 85025; 86140; 87040; 93005; J2060; J2185; J2765; J3475; J3490; J7050; J7512; U0002

== ENCOUNTER 2021-09-08 11:51 | Inpatient (IN) | payer MEDICARE ==
[~2021-09-08 11:51] MED LIST: Iopamidol-370 76% 500 ML 1 ML ONE
[2021-09-08 12:37] LABS: #Eosinphils 0.1 thou/uL (0.0-0.7); #Lymphocytes 1.6 thou/uL (1.20-3.40); #Monocytes 1.4 thou/uL (0.11-0.59); %Basophils 0.3 % (0.0-1.0); %Eosinophils 0.5 % (0.0-10.0); %Lymphocytes 10.7 % (21.0-51.0); %Neutrophils 79.6 % (42.0-75.0); Hemoglobin 12.9 g/dL (12.0-16.0); Mean Corpuscular HGB CONC 34.3 g/dL (32.0-36.0); Mean Corpuscular Hemoglobin 32.8 pg (27.0-31.0); Mean Corpuscular Volume 95.7 fL (78.0-98.0); Mean Platelet Volume 7.1 fL (7.4-10.4); Platelet Count 224 thou/uL (130-400); RBC Distribution Width 12.7 % (11.5-14.5); Red Blood Cell (RBC) Count 3.93 mill/uL (4.20-5.40); White Blood Cell (WBC) Count 15.1 thou/uL (4.8-10.8)
[2021-09-08 13:04] LABS: ALT (SGPT) 12 U/L (8-55); AST (SGOT) 25 U/L (5-34); Albumin 3.6 g/dL (3.4-4.8); Alkaline Phosphatase 59 U/L (40-110); Anion Gap 14 mmol/L (10-20); BUN (Urea Nitrogen) 8 mg/dL (9.8-20.1); Bilirubin, Total 0.4 mg/dL (0.2-1.2); CK (CPK) 342 U/L (29-168); Calc. Creatinine Clearance 0 mL/min (70-130); Calcium 8.2 mg/dL (7.8-10.44); Carbon Dioxide 31 mmol/L (23-31); Chloride 85 mmol/L (98-107); Globulin 2.1 g/dL (2.4-3.5); Glucose 102 mg/dL (80-115); Lipase 27 U/L (8-78); Magnesium 2.4 mg/dL (1.6-2.6); Protein, Total 5.7 g/dL (5.8-8.1); Sodium 127 mmol/L (136-145)
[2021-09-08 13:09] LABS: Potassium 2.5 mmol/L (3.5-5.1)
[2021-09-08] MEDS ORDERED: Pot Chloride/Pot Bicarb/Cit Ac 25 mEq Effervescent Tablet ONE (15:19)
[2021-09-08] MEDS ORDERED: Potassium Chloride 20 MEQ/100 ML PREMIX BAG ONE (15:25)
[2021-09-08] MEDS ORDERED: Ondansetron ODT 4 MG TAB ONE (16:42)
[2021-09-08 17:21] LABS: Bacteria/HPF None Seen HPF (None Seen); Bilirubin Negative (Negative); Blood, Urine 2+ (Negative); Clarity Clear (Clear); Glucose, Urine (Dipstick) Normal (Negative); Ketone, Urine Negative (Negative); Leukocyte 75 Leu/uL (Negative); Nitrite Negative (Negative); Protein, Urine (Dipstick) Negative (Neg-Trace); Specific Gravity, Urine 1.025 (1.002-1.036); Squamous Epithelial 0-3 HPF (0-3); Urobilinogen Normal mg/dL (Less than 2); WBC/HPF 0-3 HPF (0-3)
[2021-09-08] MEDS ORDERED: Ondansetron ODT 4 MG TAB PO PRN (18:02)
[2021-09-08] MEDS ORDERED: Senokot S 8.6-50 MG TAB PO PRN (18:02)
[2021-09-08] MEDS ORDERED: Ondansetron PF 4 MG/2 ML Vial IVP PRN (18:02)
[2021-09-08] MEDS ORDERED: Bisacodyl 5 MG TAB PO PRN (18:02)
[2021-09-08] MEDS ORDERED: Acetaminophen 325 MG TAB PO PRN (18:02)
[2021-09-08] MEDS ORDERED: Potassium Chloride 20 MEQ TAB PO SCH ×2 (18:15→22:45)
[2021-09-08] MEDS ORDERED: Potassium Chloride 20 MEQ in Premix Bag 1 BAG IVPB SCH (18:30)
[2021-09-08] MEDS: Sodium Chloride 0.9% 1,000 ML IV SCH ×2 (18:40→20:20)
[2021-09-08 19:41] LABS: Hemoglobin A1c 5.7 % (4.0-6.0)
[2021-09-08 19:55] VITALS: BMI 20.2
[2021-09-08] MEDS: Famotidine 20 MG TAB PO SCH (20:20)
[2021-09-08] MEDS: Divalproex Sodium DR 500 MG TAB PO SCH (20:20)
[2021-09-08 22:30] LABS: Anion Gap 9 mmol/L (10-20); BUN (Urea Nitrogen) 6 mg/dL (9.8-20.1); Calc. Creatinine Clearance 76 mL/min (70-130); Calcium 8.1 mg/dL (7.8-10.44); Carbon Dioxide 31 mmol/L (23-31); Chloride 95 mmol/L (98-107); Glucose 99 mg/dL (80-115); Potassium 3.3 mmol/L (3.5-5.1); Sodium 132 mmol/L (136-145)
[2021-09-08] MEDS: Acetaminophen/Codeine 30-300mg Tablet PO PRN (23:14)
[2021-09-08 23:53] LABS: Creatinine, Urine Less than 20.00 mg/dL (47-110); Sodium, Urine 46 mmol/L (Not Available); Urea Nitrogen, Random Urine 79 mg/dl
[2021-09-09 02:01] LABS: SARS-CoV-2 NAA Rapid Test Not Detected (NotDetected)
[2021-09-09 05:25] LABS: #Eosinphils 0.1 thou/uL (0.0-0.7); #Lymphocytes 2.8 thou/uL (1.20-3.40); #Monocytes 1.3 thou/uL (0.11-0.59); #Neutrophils 6.8 thou/uL (1.40-6.50); %Basophils 0.3 % (0.0-1.0); %Eosinophils 1.2 % (0.0-10.0); %Lymphocytes 25.2 % (21.0-51.0); %Monocytes 11.8 % (0.0-10.0); %Neutrophils 61.5 % (42.0-75.0); Hemoglobin 12.5 g/dL (12.0-16.0); Mean Corpuscular HGB CONC 33.6 g/dL (32.0-36.0); Mean Corpuscular Volume 98.3 fL (78.0-98.0); Mean Platelet Volume 7.4 fL (7.4-10.4); Platelet Count 197 thou/uL (130-400); RBC Distribution Width 12.9 % (11.5-14.5); Red Blood Cell (RBC) Count 3.78 mill/uL (4.20-5.40); White Blood Cell (WBC) Count 11.1 thou/uL (4.8-10.8)
[2021-09-09 05:44] LABS: ALT (SGPT) 12 U/L (8-55); AST (SGOT) 20 U/L (5-34); Albumin 3.2 g/dL (3.4-4.8); Alkaline Phosphatase 56 U/L (40-110); Anion Gap 10 mmol/L (10-20); BUN (Urea Nitrogen) 4 mg/dL (9.8-20.1); Bilirubin, Total 0.3 mg/dL (0.2-1.2); CK (CPK) 252 U/L (29-168); Calc. Creatinine Clearance 78 mL/min (70-130); Calcium 8.3 mg/dL (7.8-10.44); Carbon Dioxide 31 mmol/L (23-31); Chloride 99 mmol/L (98-107); Cholesterol 179 mg/dl (< 200 Desired); Globulin 2.2 g/dL (2.4-3.5); Glucose 96 mg/dL (80-115); HDL Cholesterol 45 mg/dL (>60 Neg Risk); LDL Cholesterol, Calculated 110 mg/dL; Magnesium 2.2 mg/dL (1.6-2.6); Protein, Total 5.4 g/dL (5.8-8.1); Sodium 136 mmol/L (136-145); Triglycerides 120 mg/dL (Less than 150)
[2021-09-09] MEDS: Divalproex Sodium DR 500 MG TAB PO SCH ×2 (08:01→21:20)
[2021-09-09] MEDS: Famotidine 20 MG TAB PO SCH ×2 (08:02→21:18)
[2021-09-09] MEDS: Losartan 25 MG TAB PO SCH (08:02)
[2021-09-09] MEDS: Enoxaparin Sodium 40 MG/0.4 ML SYRINGE SC SCH (08:02)
[2021-09-09] MEDS: methylPREDNISolone Sod Succ 40 MG VIAL IVP SCH (09:34)
[2021-09-09] MEDS: Sodium Chloride 0.9% 1,000 ML IV SCH ×2 (09:34→21:18)
[2021-09-09] MEDS: Acetaminophen/Codeine 30-300mg Tablet PO PRN ×2 (11:26→18:27)
[2021-09-09] MEDS ORDERED: ALPRAZolam 0.5 MG TAB PO SCH (14:45)
[2021-09-09] MEDS: Azithromycin 500 MG in Sodium Chloride 0.9% 250 ML 250 ML IVPB SCH (15:20)
[2021-09-09] MEDS: Nicotine 14 MG PATCH TD SCH (18:27)
[2021-09-09] MEDS: Calcium Carbonate 500 MG ChewTAB PO PRN (21:26)
[2021-09-10] MEDS: Acetaminophen/Codeine 30-300mg Tablet PO PRN (03:59)
[2021-09-10 05:00] LABS: #Basophils 0.1 thou/uL (0.0-0.2); #Eosinphils 0.1 thou/uL (0.0-0.7); #Lymphocytes 2.4 thou/uL (1.20-3.40); #Monocytes 0.8 thou/uL (0.11-0.59); #Neutrophils 7.2 thou/uL (1.40-6.50); %Basophils 0.5 % (0.0-1.0); %Eosinophils 0.9 % (0.0-10.0); %Lymphocytes 22.7 % (21.0-51.0); %Monocytes 7.8 % (0.0-10.0); Mean Corpuscular HGB CONC 33.8 g/dL (32.0-36.0); Mean Corpuscular Hemoglobin 33.1 pg (27.0-31.0); Mean Corpuscular Volume 97.8 fL (78.0-98.0); Mean Platelet Volume 7.3 fL (7.4-10.4); Platelet Count 194 thou/uL (130-400); RBC Distribution Width 12.8 % (11.5-14.5); Red Blood Cell (RBC) Count 3.32 mill/uL (4.20-5.40); White Blood Cell (WBC) Count 10.6 thou/uL (4.8-10.8)
[2021-09-10 05:21] LABS: ALT (SGPT) 13 U/L (8-55); AST (SGOT) 17 U/L (5-34); Albumin 3.2 g/dL (3.4-4.8); Alkaline Phosphatase 55 U/L (40-110); Anion Gap 11 mmol/L (10-20); BUN (Urea Nitrogen) 5 mg/dL (9.8-20.1); Bilirubin, Total 0.3 mg/dL (0.2-1.2); Calc. Creatinine Clearance 80 mL/min (70-130); Calcium 8.4 mg/dL (7.8-10.44); Carbon Dioxide 27 mmol/L (23-31); Chloride 100 mmol/L (98-107); Globulin 2.1 g/dL (2.4-3.5); Glucose 94 mg/dL (80-115); Magnesium 1.9 mg/dL (1.6-2.6); Potassium 3.5 mmol/L (3.5-5.1); Protein, Total 5.3 g/dL (5.8-8.1); Sodium 134 mmol/L (136-145)
[2021-09-10] MEDS ORDERED: guaiFENesin/DM ER PO PRN (05:28)
[2021-09-10] MEDS: Calcium Carbonate 500 MG ChewTAB PO PRN ×2 (06:03→10:35)
[2021-09-10] MEDS: Enoxaparin Sodium 40 MG/0.4 ML SYRINGE SC SCH (10:21)
[2021-09-10] MEDS: Famotidine 20 MG TAB PO SCH (10:22)
[2021-09-10] MEDS: Losartan 25 MG TAB PO SCH (10:22)
[2021-09-10] MEDS: methylPREDNISolone Sod Succ 40 MG VIAL IVP SCH (10:22)
[2021-09-10] MEDS: Sodium Chloride 0.9% 1,000 ML IV SCH (10:22)
[2021-09-10] MEDS: Divalproex Sodium DR 500 MG TAB PO SCH (10:28)
[2021-09-10] MEDS ORDERED: DULoxetine 60 MG CAP PO SCH (11:00)
[2021-09-10] MEDS ORDERED: ALPRAZolam 0.25 MG TAB PO SCH ×2 (11:00→11:15)
[2021-09-10] MEDS: Azithromycin 500 MG in Sodium Chloride 0.9% 250 ML 250 ML IVPB SCH (15:26)
[2021-09-10] MEDS: Nicotine 14 MG PATCH TD SCH (15:26)
[2021-09-10 15:39] VITALS: BP 156/72; TEMP 98.2
[2021-09-11] MEDS ORDERED: DULoxetine 60 MG CAP PO SCH (09:00)
== END 2021-09-10 18:40 | disposition home or self-care (01) | DRG 391 ==
LOC: ERS 11:51 → 2NO 16:29
PROVIDERS: ADMIT Family Medicine; ATTEND Family Medicine
DX: K52.9 Noninfective gastroenteritis and colitis, unspecified (principal); J96.01 Acute respiratory failure with hypoxia; J44.1 Chronic obstructive pulmonary disease with (acute) exacerbation; M62.82 Rhabdomyolysis; E87.1 Hypo-osmolality and hyponatremia; E87.6 Hypokalemia; Z20.822 Contact with and (suspected) exposure to COVID-19; T50.2X5A Adverse effect of carbonic-anhydrase inhibitors, benzothiadiazides and other diuretics, initial encounter; I10 Essential (primary) hypertension; F41.9 Anxiety disorder, unspecified; E78.5 Hyperlipidemia, unspecified; G89.29 Other chronic pain; M54.9 Dorsalgia, unspecified; F31.9 Bipolar disorder, unspecified; F17.210 Nicotine dependence, cigarettes, uncomplicated; M41.9 Scoliosis, unspecified; R31.29 Other microscopic hematuria; G40.909 Epilepsy, unspecified, not intractable, without status epilepticus; E86.0 Dehydration; Z90.89 Acquired absence of other organs; Z91.040 Latex allergy status; Z79.899 Other long term (current) drug therapy; Z98.890 Other specified postprocedural states
CPT/HCPCS: 36415; 71045; 74177; 80053; 80061; 81003; 81015; 82550; 82570; 83036; 83690; 83735; 83880; 83930; 83935; 84300; 84443; 84484; 84540; 85025; 93005; 94640; J0456; J1650; J2405; J2920; J3480; J7050; J7620; Q0162; Q9967

== ENCOUNTER 2021-09-27 18:03 | Emergency (ER) | payer MEDICARE, OTHER ==
[2021-09-27] MEDS ORDERED: Mag-Al 1200 mg/1200 mg/30 ML UDCUP ONE (18:46)
[2021-09-27] MEDS ORDERED: Lidocaine Viscous Sol 2% 15 ml UD Cup ONE (18:46)
[2021-09-27 18:50] LABS: #Basophils 0.1 thou/uL (0.0-0.2); #Lymphocytes 1.5 thou/uL (1.20-3.40); #Neutrophils 11.7 thou/uL (1.40-6.50); %Basophils 0.8 % (0.0-1.0); %Eosinophils 0.2 % (0.0-10.0); %Lymphocytes 10.2 % (21.0-51.0); %Monocytes 7.2 % (0.0-10.0); %Neutrophils 81.7 % (42.0-75.0); Hemoglobin 13.6 g/dL (12.0-16.0); Mean Corpuscular Hemoglobin 31.9 pg (27.0-31.0); Mean Corpuscular Volume 93.8 fL (78.0-98.0); Mean Platelet Volume 7.1 fL (7.4-10.4); Platelet Count 258 thou/uL (130-400); RBC Distribution Width 12.6 % (11.5-14.5); Red Blood Cell (RBC) Count 4.26 mill/uL (4.20-5.40); White Blood Cell (WBC) Count 14.4 thou/uL (4.8-10.8)
[2021-09-27 19:15] LABS: ALT (SGPT) 20 U/L (8-55); AST (SGOT) 26 U/L (5-34); Albumin 3.9 g/dL (3.4-4.8); Alkaline Phosphatase 61 U/L (40-110); Anion Gap 17 mmol/L (10-20); BUN (Urea Nitrogen) 13 mg/dL (9.8-20.1); Bilirubin, Total 0.7 mg/dL (0.2-1.2); Calc. Creatinine Clearance 0 mL/min (70-130); Calcium 9.8 mg/dL (7.8-10.44); Carbon Dioxide 30 mmol/L (23-31); Chloride 82 mmol/L (98-107); Globulin 2.7 g/dL (2.4-3.5); Glucose 137 mg/dL (80-115); Lipase 35 U/L (8-78); Protein, Total 6.6 g/dL (5.8-8.1); Sodium 126 mmol/L (136-145)
[2021-09-27] MEDS ORDERED: Nicotine 14 MG PATCH ONE (19:28)
[2021-09-27] MEDS ORDERED: Acetaminophen 500 MG TAB ONE (19:33)
[2021-09-27] MEDS ORDERED: Potassium Chloride 20 MEQ TAB ONE (20:16)
== END 2021-09-27 20:23 | disposition home or self-care (01) ==
LOC: ERS 18:03
DX: E87.6 Hypokalemia (principal); K13.70 Unspecified lesions of oral mucosa; E78.5 Hyperlipidemia, unspecified; I10 Essential (primary) hypertension; J44.9 Chronic obstructive pulmonary disease, unspecified; F17.210 Nicotine dependence, cigarettes, uncomplicated; Z79.899 Other long term (current) drug therapy
CPT/HCPCS: 36415; 71045; 80053; 83690; 85025; 96360; 96361

== ENCOUNTER 2022-07-21 20:10 | Emergency (ER) | payer OTHER ==
[2022-07-21 21:23] LABS: #Basophils 0.1 thou/uL (0.0-0.2); #Eosinphils 0.2 thou/uL (0.0-0.7); #Lymphocytes 2.6 thou/uL (1.20-3.40); #Monocytes 0.8 thou/uL (0.11-0.59); #Neutrophils 6.4 thou/uL (1.40-6.50); %Basophils 0.9 % (0.0-1.0); %Eosinophils 2.1 % (0.0-10.0); %Lymphocytes 25.9 % (21.0-51.0); %Monocytes 8.1 % (0.0-10.0); Mean Corpuscular HGB CONC 36.3 g/dL (32.0-36.0); Mean Corpuscular Hemoglobin 34.6 pg (27.0-31.0); Mean Corpuscular Volume 95.2 fl (78.0-98.0); Platelet Count 245 10x3/uL (130-400); RBC Distribution Width 13.2 % (11.5-14.5); Red Blood Cell (RBC) Count 3.76 mill/uL (4.20-5.40); White Blood Cell (WBC) Count 10.1 10x3/uL (4.8-10.8)
[2022-07-21 21:29] LABS: Bacteria/HPF None Seen HPF (None Seen); Bilirubin Negative (Negative); Blood, Urine 1+ (Negative); Clarity Clear (Clear); Glucose, Urine (Dipstick) Normal (Negative); Ketone, Urine Trace mg/dL (Negative); Leukocyte Negative Leu/uL (Negative); Nitrite Negative (Negative); Protein, Urine (Dipstick) Negative (Neg-Trace); Specific Gravity, Urine 1.007 (1.002-1.036); Squamous Epithelial 0-3 HPF (0-3); Urobilinogen Normal mg/dL (Less than 2); WBC/HPF 0-3 HPF (0-3)
[2022-07-21 21:55] LABS: ALT (SGPT) 12 U/L (8-55); AST (SGOT) 18 U/L (5-34); Albumin 4.1 g/dL (3.4-4.8); Alkaline Phosphatase 79 U/L (40-110); Anion Gap 14 mmol/L (10-20); BUN (Urea Nitrogen) 12 mg/dL (9.8-20.1); Bilirubin, Total 0.3 mg/dL (0.2-1.2); Calc. Creatinine Clearance 0 mL/min (70-130); Carbon Dioxide 23 mmol/L (23-31); Chloride 102 mmol/L (98-107); Estimated GFR 87; Globulin 2.6 g/dL (2.4-3.5); Glucose 95 mg/dL (80-115); Potassium 3.8 mmol/L (3.5-5.1); Protein, Total 6.7 g/dL (5.8-8.1); Sodium 135 mmol/L (136-145)
== END 2022-07-21 22:20 | disposition home or self-care (01) ==
LOC: ERS 20:10
DX: M79.672 Pain in left foot (principal); M79.671 Pain in right foot; I10 Essential (primary) hypertension; E78.5 Hyperlipidemia, unspecified; F17.210 Nicotine dependence, cigarettes, uncomplicated
CPT/HCPCS: 36415; 80053; 81003; 81015; 85025; 99283

== ENCOUNTER 2022-08-30 22:22 | Inpatient (IN) | payer OTHER ==
[2022-08-30 23:30] LABS: #Basophils 0.1 thou/uL (0.0-0.2); #Eosinphils 0.1 thou/uL (0.0-0.7); #Lymphocytes 2.1 thou/uL (1.20-3.40); #Monocytes 0.9 thou/uL (0.11-0.59); #Neutrophils 7.8 thou/uL (1.40-6.50); %Basophils 0.7 % (0.0-1.0); %Eosinophils 0.8 % (0.0-10.0); %Lymphocytes 18.9 % (21.0-51.0); %Neutrophils 71.7 % (42.0-75.0); Base Excess 1.7 mEq/L (-2.0 to +3.0); Calcium, Ionized (venous) 1.09 mmol/L (1.16-1.32); Chloride (VBG) 102 mmol/L (98-106); Hematocrit-VBG 45 % (36.0-47.0); Hemoglobin 14.3 g/dL (12.0-16.0); Hemoglobin (Hb) 15.2 g/dL (11.7-16.1); Mean Corpuscular HGB CONC 33.8 g/dL (32.0-36.0); Mean Corpuscular Hemoglobin 32.3 pg (27.0-31.0); Mean Corpuscular Volume 95.7 fl (78.0-98.0); Mean Platelet Volume 7.7 fL (7.4-10.4); Platelet Count 217 10x3/uL (130-400); Potassium (VBG) 3.69 mmol/L (3.70-5.30); RBC Distribution Width 12.5 % (11.5-14.5); Red Blood Cell (RBC) Count 4.43 mill/uL (4.20-5.40); Sodium 135.3 mmol/L (133-146); White Blood Cell (WBC) Count 10.9 10x3/uL (4.8-10.8); pH (venous) 7.435 (7.32-7.43)
[2022-08-30 23:50] LABS: ALT (SGPT) 13 U/L (8-55); AST (SGOT) 15 U/L (5-34); Acetaminophen Less than 10.0 mcg/mL (10.0-30.0); Alcohol Less than 10 mg/dL (Less than 10); Alkaline Phosphatase 76 U/L (40-110); Anion Gap 14 mmol/L (10-20); BUN (Urea Nitrogen) 14 mg/dL (9.8-20.1); Bilirubin, Total 0.4 mg/dL (0.2-1.2); CK (CPK) 50 U/L (29-168); Calc. Creatinine Clearance 0 mL/min (70-130); Calcium 10.5 mg/dL (7.8-10.44); Carbon Dioxide 25 mmol/L (23-31); Chloride 103 mmol/L (98-107); Estimated GFR 83; Globulin 2.6 g/dL (2.4-3.5); Glucose 99 mg/dL (80-115); Potassium 3.7 mmol/L (3.5-5.1); Protein, Total 6.6 g/dL (5.8-8.1); Salicylate Less than 8.0 mg/dL (15.0-30.0); Sodium 138 mmol/L (136-145)
[2022-08-31 00:37] LABS: Bacteria/HPF None Seen HPF (None Seen); Bilirubin Negative (Negative); Blood, Urine 1+ (Negative); Clarity Turbid (Clear); Glucose, Urine (Dipstick) Normal (Negative); Ketone, Urine Negative (Negative); Leukocyte Negative Leu/uL (Negative); Nitrite Negative (Negative); Protein, Urine (Dipstick) Negative (Neg-Trace); Specific Gravity, Urine 1.009 (1.002-1.036); Squamous Epithelial None Seen HPF (0-3); Urobilinogen Normal mg/dL (Less than 2); WBC/HPF 0-3 HPF (0-3)
[2022-08-31 00:43] LABS: Amphetamine Not Detected (NotDetected); Barbiturates Screen Not Detected (NotDetected); Benzodiazepine Screen Not Detected (NotDetected); Cocaine Metabolite Screen Not Detected (NotDetected); Methadone Not Detected (NotDetected); Methamphetamine Not Detected (NotDetected); Opiate Screen Not Detected (NotDetected); Oxycodone Screen Not Detected (NotDetected); Phencyclidine (PCP) Not Detected (NotDetected); THC/Cannabinoid Screen Not Detected (NotDetected); Tricyclic Screen Not Detected (NotDetected)
[2022-08-31] MEDS ORDERED: Ondansetron PF 4 MG/2 ML Vial IVP PRN (03:42)
[2022-08-31] MEDS: Sodium Chloride 0.9% 1,000 ML IV SCH ×2 (05:15→14:32)
[2022-08-31 05:22] VITALS: BMI 15.0
[2022-08-31] MEDS: Famotidine 20 MG TAB PO SCH ×3 (08:11→20:13)
[2022-08-31] MEDS ORDERED: Acetaminophen 325 MG TAB PO PRN ×2 (08:53)
[2022-08-31] MEDS: Nicotine 14 MG PATCH TD SCH (10:00)
[2022-09-01] MEDS: Sodium Chloride 0.9% 1,000 ML IV SCH (00:52)
[2022-09-01 06:06] LABS: #Basophils 0.1 thou/uL (0.0-0.2); #Eosinphils 0.2 thou/uL (0.0-0.7); #Lymphocytes 2.4 thou/uL (1.20-3.40); #Monocytes 0.6 thou/uL (0.11-0.59); #Neutrophils 3.9 thou/uL (1.40-6.50); %Eosinophils 3.4 % (0.0-10.0); %Lymphocytes 33.3 % (21.0-51.0); %Monocytes 8.5 % (0.0-10.0); %Neutrophils 53.8 % (42.0-75.0); Hemoglobin 12.4 g/dL (12.0-16.0); Mean Corpuscular HGB CONC 33.1 g/dL (32.0-36.0); Mean Corpuscular Hemoglobin 31.7 pg (27.0-31.0); Mean Corpuscular Volume 95.9 fl (78.0-98.0); Mean Platelet Volume 7.6 fL (7.4-10.4); Platelet Count 207 10x3/uL (130-400); RBC Distribution Width 12.4 % (11.5-14.5); White Blood Cell (WBC) Count 7.2 10x3/uL (4.8-10.8)
[2022-09-01 06:24] LABS: Anion Gap 11 mmol/L (10-20); BUN (Urea Nitrogen) 7 mg/dL (9.8-20.1); Calc. Creatinine Clearance 61 mL/min (70-130); Calcium 9.1 mg/dL (7.8-10.44); Carbon Dioxide 26 mmol/L (23-31); Chloride 105 mmol/L (98-107); Estimated GFR 98; Glucose 86 mg/dL (80-115); Potassium 3.6 mmol/L (3.5-5.1); Sodium 138 mmol/L (136-145)
[2022-09-01] MEDS ORDERED: Albuterol 200 PUFF (6.7GM INHALER) INH PRN (08:26)
[2022-09-01] MEDS: Nicotine 14 MG PATCH TD SCH (09:18)
[2022-09-01] MEDS: Famotidine 20 MG TAB PO SCH ×2 (09:19→20:31)
[2022-09-01 20:37] VITALS: TEMP 98.3
[2022-09-02] MEDS ORDERED: GUAIFENESIN SF SOLN 200 MG/10 ML UDCUP PO PRN (00:08)
[2022-09-02] MEDS: Nicotine 14 MG PATCH TD SCH (08:52)
[2022-09-02] MEDS: Famotidine 20 MG TAB PO SCH (08:53)
[2022-09-02] MEDS ORDERED: Amlodipine 5 MG TAB PO SCH (09:00)
[2022-09-02 13:03] VITALS: BP 150/88
== END 2022-09-02 13:05 | DRG 92 ==
LOC: ERS 22:22 → T4-B 08-31 03:51 → OBSVTOIN 09-02 08:56
PROVIDERS: ADMIT Hospitalist; ATTEND Internal Medicine
DX: G92.8 Other toxic encephalopathy (principal); R64 Cachexia; Z68.1 Body mass index [BMI] 19.9 or less, adult; I10 Essential (primary) hypertension; E78.5 Hyperlipidemia, unspecified; J44.9 Chronic obstructive pulmonary disease, unspecified; F17.210 Nicotine dependence, cigarettes, uncomplicated; F31.9 Bipolar disorder, unspecified; M19.90 Unspecified osteoarthritis, unspecified site; F41.9 Anxiety disorder, unspecified; Z91.040 Latex allergy status; Z79.899 Other long term (current) drug therapy; Z91.148 Patient's other noncompliance with medication regimen for other reason
CPT/HCPCS: 36415; 51701; 70450; 71045; 80048; 80053; 80306; 80307; 81003; 81015; 82550; 82805; 83605; 84484; 85025; 87040; 87086; 96360; G0378; J1650; J7050

== ENCOUNTER 2023-02-22 17:37 | Emergency (ER) | payer MEDICARE, OTHER ==
[2023-02-22] MEDS ORDERED: Acetaminophen 500 MG TAB ONE (18:19)
[2023-02-22 18:21] LABS: Bacteria/HPF 4+ HPF (None Seen); Bilirubin Negative (Negative); Blood, Urine 2+ (Negative); CAUTI Indications for Culture Alt mental st,lethar; Clarity Extra Turbid (Clear); Glucose, Urine (Dipstick) Normal (Negative); Ketone, Urine Negative (Negative); Leukocyte 500 Leu/uL (Negative); Nitrite Negative (Negative); Protein, Urine (Dipstick) 20 mg/dL (Neg-Trace); RBC/HPF 21-50 HPF (0-3); Specific Gravity, Urine 1.001 (1.002-1.036); Squamous Epithelial None Seen HPF (0-3); Urobilinogen Normal mg/dL (Less than 2)
[2023-02-22] MEDS ORDERED: Meclizine HCl 25 MG TAB ONE (18:22)
[2023-02-22 18:25] LABS: Amphetamine Not Detected (NotDetected); Barbiturates Screen Not Detected (NotDetected); Benzodiazepine Screen Not Detected (NotDetected); Cocaine Metabolite Screen Not Detected (NotDetected); Methadone Not Detected (NotDetected); Methamphetamine Not Detected (NotDetected); Opiate Screen Not Detected (NotDetected); Oxycodone Screen Not Detected (NotDetected); Phencyclidine (PCP) Not Detected (NotDetected); THC/Cannabinoid Screen Not Detected (NotDetected); Tricyclic Screen Not Detected (NotDetected)
[2023-02-22 18:27] LABS: Urine Culture Reflex Yes Yes
[2023-02-22 18:32] LABS: #Basophils 0.1 thou/uL (0.0-0.2); #Eosinphils 0.2 thou/uL (0.0-0.7); #Monocytes 1.3 thou/uL (0.11-0.59); #Neutrophils 5.8 thou/uL (1.40-6.50); %Basophils 0.6 % (0.0-1.0); %Eosinophils 2.2 % (0.0-10.0); %Lymphocytes 22.1 % (21.0-51.0); %Monocytes 13.3 % (0.0-10.0); %Neutrophils 61.5 % (42.0-75.0); Hematocrit 32.5 % (36.0-47.0); Mean Corpuscular HGB CONC 33.8 g/dL (32.0-36.0); Mean Corpuscular Volume 88.6 fl (78.0-98.0); Mean Platelet Volume 8.8 fL (7.4-10.4); Platelet Count 258 10x3/uL (130-400); RBC Distribution Width 14.5 % (11.5-14.5); Red Blood Cell (RBC) Count 3.67 mill/uL (4.20-5.40); White Blood Cell (WBC) Count 9.4 10x3/uL (4.8-10.8)
[2023-02-22 18:54] LABS: Acetaminophen Less than 10 mcg/mL (10.0-30.0); Alcohol Less than 10.0 mg/dL (Less than 10); Salicylate Less than 8.0 mg/dL (15.0-30.0)
[2023-02-22 18:55] LABS: ALT (SGPT) 17 U/L (8-55); AST (SGOT) 21 U/L (5-34); Albumin 4.1 g/dL (3.4-4.8); Alkaline Phosphatase 78 U/L (40-110); Anion Gap 10 mmol/L (10-20); BUN (Urea Nitrogen) 17 mg/dL (9.8-20.1); Bilirubin, Total 0.3 mg/dL (0.2-1.2); Calc. Creatinine Clearance 0 mL/min (70-130); Calcium 9.6 mg/dL (7.8-10.44); Carbon Dioxide 27 mmol/L (23-31); Chloride 100 mmol/L (98-107); Estimated GFR 81; Globulin 2.3 g/dL (2.4-3.5); Glucose 88 mg/dL (80-115); Potassium 4.1 mmol/L (3.5-5.1); Protein, Total 6.4 g/dL (5.8-8.1); Sodium 133 mmol/L (136-145)
[2023-02-22] MEDS ORDERED: cefTRIAXone (ROCEPHIN) 1 GM VIAL ONE (19:19)
== END 2023-02-22 20:40 | disposition home or self-care (01) ==
LOC: ERS 17:37
DX: N39.0 Urinary tract infection, site not specified (principal); E78.5 Hyperlipidemia, unspecified; I10 Essential (primary) hypertension; F17.210 Nicotine dependence, cigarettes, uncomplicated
CPT/HCPCS: 36415; 80053; 80306; 80307; 81001; 85025; 87077; 87086; 87186; 93005; 96365; J0696

== ENCOUNTER 2023-10-21 19:55 | Emergency (ER) | payer OTHER ==
[2023-10-21 20:48] LABS: #Basophils 0.05 10x3/uL (0.0-0.2); %Basophils 0.6 % (0.0-1.0); %Eosinophils 4.2 % (0.0-10.0); %Lymphocytes 24.8 % (21.0-51.0); %Monocytes 13.6 % (0.0-10.0); %Neutrophils 56.4 % (42.0-75.0); Hematocrit 34.5 % (36.0-47.0); Hemoglobin 11.8 g/dL (12.0-16.0); Mean Corpuscular HGB CONC 34.2 g/dL (32.0-36.0); Mean Corpuscular Hemoglobin 29.4 pg (27.0-31.0); Mean Corpuscular Volume 85.8 fL (78.0-98.0); Platelet Count 314 10x3/uL (130-400); RBC Distribution Width 14.2 % (11.5-14.5); Red Blood Cell (RBC) Count 4.02 mill/uL (4.20-5.40)
[2023-10-21] MEDS ORDERED: Ketorolac Tromethamine 30 MG (1 mL) VIAL ONE (21:04)
[2023-10-21] MEDS ORDERED: Boostrix 0.5 ML (Tdap) VIAL (>/=7 yrs of age) ONE (21:04)
[2023-10-21 21:12] LABS: ALT (SGPT) 20 U/L (8-55); AST (SGOT) 22 U/L (5-34); Acetaminophen Less than 10 mcg/mL (10.0-30.0); Albumin 3.3 g/dL (3.4-4.8); Alcohol Less than 10.0 mg/dL (Less than 10); Alkaline Phosphatase 77 U/L (40-110); Anion Gap 13 mmol/L (10-20); BUN (Urea Nitrogen) 19 mg/dL (9.8-20.1); Bilirubin, Total 0.2 mg/dL (0.2-1.2); Calc. Creatinine Clearance 0 mL/min (70-130); Calcium 9.4 mg/dL (7.8-10.44); Carbon Dioxide 25 mmol/L (23-31); Chloride 99 mmol/L (98-107); Estimated GFR 84; Globulin 3.1 g/dL (2.4-3.5); Glucose 92 mg/dL (80-115); Potassium 4.2 mmol/L (3.5-5.1); Protein, Total 6.4 g/dL (5.8-8.1); Salicylate Less than 8.0 mg/dL (15.0-30.0); Sodium 133 mmol/L (136-145)
[2023-10-21 22:52] LABS: Influenza A by NAA Not Detected (NotDetected); Influenza B by NAA Not Detected (NotDetected); SARS-CoV-2 NAA Rapid Test Not Detected (NotDetected)
[2023-10-22 00:05] LABS: Bacteria/HPF None Seen HPF (None Seen); Bilirubin Negative (Negative); Blood, Urine 1+ (Negative); CAUTI Indications for Culture Alt mental st,lethar; Clarity Turbid (Clear); Glucose, Urine (Dipstick) Normal (Negative); Ketone, Urine Negative (Negative); Leukocyte 500 Leu/uL (Negative); Nitrite Negative (Negative); Protein, Urine (Dipstick) Negative (Neg-Trace); Renal Epithelial 0-3 HPF (None Seen); Specific Gravity, Urine 1.014 (1.002-1.036); Urobilinogen Normal mg/dL (Less than 2); WBC/HPF Greater than 50 HPF (0-3)
[2023-10-22 00:06] LABS: Urine Culture Reflex Yes Yes
[2023-10-22 00:08] LABS: Amphetamine Not Detected (NotDetected); Barbiturates Screen Not Detected (NotDetected); Benzodiazepine Screen Detected (NotDetected); Cocaine Metabolite Screen Not Detected (NotDetected); Methadone Not Detected (NotDetected); Methamphetamine Not Detected (NotDetected); Opiate Screen Not Detected (NotDetected); Oxycodone Screen Not Detected (NotDetected); Phencyclidine (PCP) Not Detected (NotDetected); THC/Cannabinoid Screen Not Detected (NotDetected); Tricyclic Screen Not Detected (NotDetected)
[2023-10-22] MEDS ORDERED: Acetaminophen 500 MG TAB ONE (08:10)
== END 2023-10-22 11:11 ==
LOC: ERS 19:55
DX: F23 Brief psychotic disorder (principal); R45.851 Suicidal ideations; I10 Essential (primary) hypertension
CPT/HCPCS: 0240U; 71045; 80053; 80306; 80307; 81001; 85025; 87086; 90715; 93005; J1885; 90471; 96374